=== PATIENT | female | born 1970 | race Caucasian/White ===

== ENCOUNTER 2020-03-24 08:13 | Outpatient (REF) | payer OTHER, SELFPAY | END 2020-03-24 08:14 | disposition home or self-care (01) | LOC: HO.LAB 08:13 | PROVIDERS: Visit Provider Internal Medicine | DX: Z20.828 Contact with and (suspected) exposure to other viral communicable diseases (principal) | CPT/HCPCS: C9803; U0003 ==

== ENCOUNTER 2020-05-26 07:27 | Outpatient (REF) | payer OTHER, SELFPAY ==
--- NOTE | ~2020-05-26 | MM_ITS ---
EXAMINATION: MM SCREENING DIGITAL BREAST TOMOSYNTHESIS, BILATERAL CLINICAL INFORMATION: Screening. Asymptomatic. Family history breast cancer, mother. The lifetime risk of breast cancer based on the Tyrer-Cuzick Model is 21%. COMPARISON: Mammography: 02/07/2019, 11/24/2017, 07/09/2016 TECHNIQUE: Digital mammography is performed in craniocaudal and mediolateral oblique views along with computer-aided detection (CAD). Digital breast tomosynthesis is performed in implant-displaced craniocaudal and implant-displaced mediolateral oblique views along with computer-aided detection (CAD). Synthesized 2D images are generated from the tomosynthesis. Additional right CC view is provided. FINDINGS: There are scattered areas of fibroglandular density (ACR BI-RADS breast composition Category b). There are no significant masses, abnormal calcifications, or other abnormalities. Implant contours are smooth and similar to prior studies. Parenchymal pattern is similar to prior exams. No significant changes. MM/MM tomosynthesis screen imp BI IMPRESSION: No mammographic evidence of malignancy. ASSESSMENT: BI-RADS 1: Negative RECOMMENDATION: Routine annual mammography screening. This patient's information was entered into a reminder system with a target due date for their next mammogram.
[2020-05-26 09:42] LABS: MANUAL DIFF FLAG NO
[2020-05-26 09:49] LABS: Basophils Percent Auto 0.5 % (0-2); Eosinophils Absolute Auto 0.1 X10*3/uL (0.0-0.4); Eosinophils Percent Auto 2.8 % (0-4); Hematocrit 38.4 % (37-47); Hemoglobin 12.8 g/dl (12.0-16.0); Imm Gran Abs Auto 0.01 X10*3/uL (0.00-0.03); Imm Gran Pct Auto 0.2 % (0.0-0.4); Lymphocytes Absolute Auto 1.4 X10*3/uL (1.2-4.9); Lymphocytes Percent Auto 31.4 % (20-40); Mean Corpuscular HGB Conc 33.3 g/dl (31.0-35.0); Mean Corpuscular Hemoglobin 31.1 pg (27.0-33.0); Mean Corpuscular Volume 93.4 fL (80-98); Mean Platelet Volume 10.1 fL (9.4-12.3); Monocytes Absolute Auto 0.7 X10*3/uL (0.1-1.2); Monocytes Percent Auto 16.2 % (2-11); Neutrophils Absolute Auto 2.1 X10*3/uL (2.0-8.3); Neutrophils Percent Auto 48.9 % (45-73); Platelet Count 276 X10*3/uL (160-400); Red Blood Count 4.11 X10*6/uL (4.20-5.50); Red Cell Distribution Width 12.3 % (11.0-16.0); White Blood Count 4.3 X10*3/uL (4.8-10.8)
[2020-05-26 09:58] LABS: Glucose Urine UA NEG (NEG); Leukocyte Esterase Urine NEG (NEG); Nitrite Urine NEG (NEG); Specific Gravity - Urine >= 1.030 (1.005-1.025); Urine Blood NEG (NEG); Urine Ketones NEG (NEG); Urine Protein TRACE MG/DL (NEG-TRACE)
[2020-05-26 10:00] LABS: Appearance Urine CLOUDY; Color Urine YELLOW
[2020-05-26 10:18] LABS: Alanine Aminotransferase 12 U/L (0-31); Albumin Level 4.3 g/dL (3.5-5.0); Alkaline Phosphatase 57 U/L (39-117); Anion Gap 13 (12-20); Aspartate Amino Transferase 12 U/L (5-31); Bilirubin Total 0.6 mg/dL (0.0-1.0); Blood Urea Nitrogen 15 mg/dL (9-16); Calcium 9.2 mg/dL (8.4-10.2); Carbon Dioxide 26 mmol/L (22-29); Chloride 106 mmol/L (96-108); Cholesterol 177 mg/dL; Estimated Glomerular Filt Rate > 60; Glucose Random 83 mg/dL (60-115); HDL Cholesterol 49 mg/dL; LDL Cholesterol Calculated 116 mg/dl; Potassium 4.6 mmol/L (3.3-5.1); Sodium 140 mmol/L (135-145); Total Protein 7.1 g/dL (6.5-8.0); Triglycerides 62 mg/dL
[2020-05-26 10:41] LABS: Free T4 (Free Thyroxine) 0.97 ng/dL (0.71-1.85); Thyroid Stimulating Hormone 1.51 uIU/mL (0.32-4.0); Vitamin D 25-OH Total 33.8 ng/mL (>30)
[2020-05-26 10:51] LABS: Bacteria Urine 1+ /LPF; Mucus Urine TRACE /LPF; Squamous Epithelial Cell Urine 3+ /LPF; WBC Urine 0 /HPF (0-4)
[2020-06-01 05:08] LABS: Folate 18.6 ng/mL (> or = 4.0); Vitamin B12 1596 pg/mL (200-900)
== END 2020-05-26 07:28 | disposition home or self-care (01) ==
LOC: HO.MAMMO 07:27
PROVIDERS: PCP Internal Medicine; Visit Provider Internal Medicine
DX: G40.909 Epilepsy, unspecified, not intractable, without status epilepticus (principal); E78.00 Pure hypercholesterolemia, unspecified; Z12.31 Encounter for screening mammogram for malignant neoplasm of breast
CPT/HCPCS: 36415; 77063; 77067; 80053; 80061; 81001; 82306; 82607; 82746; 84439; 84443; 85025

== ENCOUNTER 2020-05-28 08:45 | Outpatient (REF) | payer OTHER, SELFPAY ==
--- NOTE | ~2020-05-28 | XR_ITS ---
EXAMINATION: XR LUMBOSACRAL SPINE CLINICAL INFORMATION: Low back pain COMPARISON: None TECHNIQUE: AP and lateral views of the lumbar spine with an additional coned down lateral spot view of the lumbosacral junction. FINDINGS: 5 non-rib bearing lumbar type vertebral bodies are seen. There is subtle mild convex right thoracolumbar scoliosis with apex at L1 which could be positional. Normal sagittal alignment. Vertebral body and disc heights are maintained. There may be lower lumbar facet arthropathy. There is minimal spurring adjacent the L1-L2 disc space there is posterior disc calcification at T11-12. XR/XR lumbar spine 2-3V IMPRESSION: No acute osseous abnormality. Degenerative changes as described above.
== END 2020-05-28 08:46 | disposition home or self-care (01) ==
LOC: HO.XRAY 08:45
PROVIDERS: PCP Internal Medicine; Visit Provider Nurse Practitioner Family
DX: M54.5 Low back pain (principal)
CPT/HCPCS: 72100

== ENCOUNTER 2020-12-17 15:10 | Outpatient (REF) | payer OTHER, SELFPAY ==
[2020-12-17 15:29] LABS: MANUAL DIFF FLAG NO
[2020-12-17 15:37] LABS: Basophils Percent Auto 0.1 % (0-2); Eosinophils Absolute Auto 0.1 X10*3/uL (0.0-0.4); Eosinophils Percent Auto 0.9 % (0-4); Hematocrit 36.5 % (37-47); Hemoglobin 12.3 g/dl (12.0-16.0); Imm Gran Abs Auto 0.03 X10*3/uL (0.00-0.03); Imm Gran Pct Auto 0.3 % (0.0-0.4); Lymphocytes Absolute Auto 2.5 X10*3/uL (1.2-4.9); Lymphocytes Percent Auto 27.3 % (20-40); Mean Corpuscular HGB Conc 33.7 g/dl (31.0-35.0); Mean Corpuscular Hemoglobin 31.2 pg (27.0-33.0); Mean Corpuscular Volume 92.6 fL (80-98); Mean Platelet Volume 9.4 fL (9.4-12.3); Monocytes Absolute Auto 0.5 X10*3/uL (0.1-1.2); Monocytes Percent Auto 5.3 % (2-11); Neutrophils Absolute Auto 6.1 X10*3/uL (2.0-8.3); Neutrophils Percent Auto 66.1 % (45-73); Platelet Count 330 X10*3/uL (160-400); Red Blood Count 3.94 X10*6/uL (4.20-5.50); Red Cell Distribution Width 12.3 % (11.0-16.0); White Blood Count 9.2 X10*3/uL (4.8-10.8)
== END 2020-12-17 15:11 | disposition home or self-care (01) ==
LOC: HO.LAB 15:10
PROVIDERS: PCP Internal Medicine; Visit Provider Internal Medicine
DX: D72.819 Decreased white blood cell count, unspecified (principal)
CPT/HCPCS: 36415; 85025

== ENCOUNTER → 2021-01-16 07:39 | Outpatient (BNVA) | payer OTHER, SELFPAY | PROVIDERS: PCP Internal Medicine; Visit Provider Physician Assistant ==

== ENCOUNTER 2021-01-24 13:42 | Outpatient (REF) | payer OTHER, SELFPAY ==
--- NOTE | ~2021-01-24 | MM_ITS ---
EXAMINATION: MM DIAGNOSTIC DIGITAL BREAST TOMOSYNTHESIS, RIGHT US DIAGNOSTIC ULTRASOUND BREAST, RIGHT CLINICAL INFORMATION: Small palpable fullness noted by patient 5:00 to 6:00 right breast noted approximately 3 weeks ago, recently decreased in size. No discharge. Age 50. TC score 9%. COMPARISON: Mammography: 01/23/2021, 02/07/2019, 11/24/2017 TECHNIQUE: Digital mammography is performed in craniocaudal and mediolateral oblique views. Digital breast tomosynthesis is performed in implant-displaced craniocaudal and implant-displaced mediolateral oblique views. Synthesized 2D images are generated from the tomosynthesis. Computer-aided detection (CAD) is performed for this exam. Ultrasound right breast is targeted to the area of clinical concern. Patient is able to directly point to the area of concern at time of imaging. Grayscale imaging and color Doppler are performed without and with harmonics. FINDINGS: There are scattered areas of fibroglandular density (ACR BI-RADS breast composition Category b). The implant contours are unremarkable. Parenchymal pattern is similar to prior studies. There is no developing density or interval mass or architectural abnormality. No focal duct ectasia or skin thickening or retraction. No abnormal calcifications. Ultrasound right breast targeted to the area of clinical concern demonstrates no cystic or solid mass or architectural abnormality or focal duct ectasia. No skin thickening or edema tracking in soft tissue planes. Results are discussed with the patient at time of visit. Patient should be managed based on the clinical impression. If clinically indicated, further evaluation may be considered with surgical consult. Decision to proceed with biopsy should be based on clinical grounds and degree of clinical concern. MM/MM tomosynthesis diag imp RT IMPRESSION: No mammographic evidence of malignancy. Unremarkable targeted right breast ultrasound. ASSESSMENT: BI-RADS 1: Negative RECOMMENDATION: 1. Patient should be managed based on the clinical impression. If clinically indicated, further evaluation may be considered with surgical consult. Decision to proceed with biopsy should be based on clinical grounds and degree of clinical concern. 2. Otherwise, routine annual screening mammography. This patient's information was entered into a reminder system with a target due date for their next mammogram.
== END 2021-01-24 13:43 | disposition home or self-care (01) ==
LOC: HO.MAMMO 13:42
PROVIDERS: PCP Internal Medicine; Visit Provider Internal Medicine
DX: N60.01 Solitary cyst of right breast (principal)
CPT/HCPCS: 76642; 77061; 77065

== ENCOUNTER 2022-08-05 08:45 | Outpatient (REF) | payer OTHER, SELFPAY ==
--- NOTE | ~2022-08-05 | MM_ITS ---
EXAMINATION: MM SCREENING DIGITAL BREAST TOMOSYNTHESIS, BILATERAL CLINICAL INFORMATION: Screening. Asymptomatic. The lifetime risk of breast cancer based on the Tyrer-Cuzick Model is 10%. COMPARISON: Mammography: 01/24/2021, 05/26/2020, 02/07/2019, 11/24/2017; right breast ultrasound 01/24/2021. TECHNIQUE: Digital mammography is performed in craniocaudal and mediolateral oblique views along with computer-aided detection (CAD). Digital breast tomosynthesis is performed in implant-displaced craniocaudal and implant-displaced mediolateral oblique views along with computer-aided detection (CAD). Synthesized 2D images are generated from the tomosynthesis. Additional left MLO view is provided. FINDINGS: There are scattered areas of fibroglandular density (ACR BI-RADS breast composition Category b). There are no significant masses, abnormal calcifications, or other abnormalities. Parenchymal pattern is similar to prior studies. There is no developing density or architectural abnormality. The implant contours are smooth. The axilla and skin contours are unremarkable. No significant changes. MM/MM tomosynthesis screen imp BI IMPRESSION: No mammographic evidence of malignancy. ASSESSMENT: BI-RADS 1: Negative RECOMMENDATION: Routine annual mammography screening. This patient's information was entered into a reminder system with a target due date for their next mammogram.
== END 2022-08-05 08:46 | disposition home or self-care (01) ==
LOC: HO.MAMMO 08:45
PROVIDERS: Visit Provider Internal Medicine
DX: Z12.31 Encounter for screening mammogram for malignant neoplasm of breast (principal)
CPT/HCPCS: 77063; 77067

== ENCOUNTER 2022-10-15 06:08 | Outpatient (REF) | payer OTHER, SELFPAY ==
[2022-10-15 06:17] LABS: MANUAL DIFF FLAG NO
[2022-10-15 08:52] LABS: Basophils Percent Auto 0.6 % (0-2); Eosinophils Absolute Auto 0.4 X10*3/uL (0.0-0.4); Eosinophils Percent Auto 5.3 % (0-4); Hematocrit 38.5 % (37.0-47.0); Hemoglobin 12.8 g/dl (12.0-16.0); Imm Gran Abs Auto 0.01 X10*3/uL (0.00-0.03); Imm Gran Pct Auto 0.1 % (0.0-0.4); Lymphocytes Absolute Auto 2.6 X10*3/uL (1.2-4.9); Lymphocytes Percent Auto 38.7 % (20-40); Mean Corpuscular HGB Conc 33.2 g/dl (31.0-35.0); Mean Corpuscular Hemoglobin 30.5 pg (27.0-33.0); Mean Corpuscular Volume 91.9 fL (80.0-98.0); Mean Platelet Volume 10.1 fL (9.4-12.3); Monocytes Absolute Auto 0.6 X10*3/uL (0.1-1.2); Monocytes Percent Auto 8.1 % (2-11); Neutrophils Absolute Auto 3.2 x10*3/uL (2.0-8.3); Neutrophils Percent Auto 47.2 % (45-73); Platelet Count 308 X10*3/uL (160-400); Red Blood Count 4.19 X10*6/uL (4.20-5.50); Red Cell Distribution Width 13.1 % (11.0-16.0); White Blood Count 6.8 X10*3/uL (4.8-10.8)
[2022-10-15 09:40] LABS: Alanine Aminotransferase 18 U/L (0-31); Albumin Level 4.2 g/dL (3.5-5.0); Alkaline Phosphatase 66 U/L (39-117); Anion Gap 15 (12-20); Aspartate Amino Transferase 20 U/L (5-31); Bilirubin Total 0.5 mg/dL (0.0-1.0); Blood Urea Nitrogen 19 mg/dL (9-16); Calcium 10.1 mg/dL (8.4-10.2); Carbon Dioxide 24 mmol/L (22-29); Chloride 106 mmol/L (96-108); Cholesterol 219 mg/dL; Estimated Glomerular Filt Rate > 60; Glucose Fasting 75 mg/dL (60-99); HDL Cholesterol 61 mg/dL; LDL Cholesterol Calculated 142 mg/dl; Potassium 4.8 mmol/L (3.3-5.1); Sodium 140 mmol/L (135-145); Total Protein 7.6 g/dL (6.5-8.0); Triglycerides 81 mg/dL
[2022-10-15 09:48] LABS: TSH reflex Free T4 2.56 uIU/mL (0.32-4.0); Vitamin D 25-OH Total 51.7 ng/mL (>30)
== END 2022-10-15 06:09 | disposition home or self-care (01) ==
LOC: HO.LAB 06:08
PROVIDERS: PCP Internal Medicine; Visit Provider Nurse Practitioner Family
DX: Z00.00 Encounter for general adult medical examination without abnormal findings (principal); K21.9 Gastro-esophageal reflux disease without esophagitis; M54.50 Low back pain, unspecified; F41.9 Anxiety disorder, unspecified; J45.909 Unspecified asthma, uncomplicated; G40.909 Epilepsy, unspecified, not intractable, without status epilepticus; G43.909 Migraine, unspecified, not intractable, without status migrainosus
CPT/HCPCS: 36415; 80053; 80061; 82306; 84443; 85025

== ENCOUNTER 2022-10-15 07:16 | Outpatient (AMB) | payer OTHER, SELFPAY ==
--- NOTE | 2022-10-15 07:50 | MHC.OFFVIS ---
Intake Vital Signs 10/15/22 07:52 Height 5 ft 5 in Weight 156 lb BMI 26.0 BP 98/57 L Blood Pressure Location Lt brachial Position Sitting Pulse 66 Intake Visit Reasons: Colonoscopy Screening Intake Note: Patient follow up for 1st pre colonoscopy consult. Patient cc: abdominal bloating, acid reflex on and off and some constipation. 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 Accompanied by: Self / Same As Patient Allergies paroxetine Adverse Reaction (Unknown, Verified 10/15/22 07:49) Unknown sertraline [Zoloft] Adverse Reaction (Unknown, Verified 10/15/22 07:49) Unknown Medication List - Last Reconciled 10/15/22 by Danya Kwon PA-C albuterol sulfate 90 mcg/actuation 2 puffs PO QID bisacodyl (Dulcolax (bisacodyl)) 10 mg (2 x 5 mg) PO ONCE 1 day bupropion HCl 300 mg PO QAM hydroxyzine HCl 25 mg PO BID PRN ibuprofen 800 mg PO Q8H PRN 10 days melatonin 3 mg PO BEDTIME PRN polyethylene glycol 3350 (Miralax) 238 grams PO ONCE 1 day tizanidine 4 mg PO Q8H PRN zolpidem (Ambien) 5 mg PO BEDTIME PRN HPI HPI Comments History of Present Illness Details A 52 y/o female referred for index screening -his family history paternal grandfather colon cancer her parents have had no GI issues. His abdominal bloating otherwise no GI complaints. Appetite is good No cardiac or respiratory No nausea, vomiting, diarrhea, hematemesis, hematochezia fever chills PFSH Medical History Anxiety and depression Asthma GERD (gastroesophageal reflux disease) Insomnia Leukopenia Lower back pain Migraine Seizure disorder Tobacco abuse Surgical History History of abdominoplasty Family History Father Mouth cancer Mother No problems noted. Sister Seizure Bipolar disorder Maternal Grandmother Leukemia Breast cancer Paternal Grandmother Leukemia Cancer Maternal Uncle Liver cancer Heart attack Other Mental health problem Social History Household Members Other:: - 2 children Housing: House Alcohol intake: current Alcohol intake frequency: holidays/special occasions only Patient Tobacco Use Status: Former Tobacco user Tobacco use type: Cigarette Years Smoked: quit 2020 e-Cigarette/Vaping Use: Never Used Second Hand Smoke Exposure: No service: No Current occupational status: employed Cognitive needs: No Hearing needs: No Vision needs: No Review of Systems Const All systems reviewed & are unremarkable except as noted in HPI and below Card Denies chest pain and Denies dyspnea Resp Denies dyspnea GI Denies abdominal pain and Reports bloating Physical Exam Vital Signs: Last Vital Signs Pulse 66 10/15/22 07:52 BP 98/57 L 10/15/22 07:52 BMI result Body Mass Index 26.0 Const General: cooperative, healthy appearing and comfortable Resp Effort & Inspection: normal respiratory effort and able to speak in complete sentences Auscultation: clear to auscultation bilaterally Cardio Rate: regular rate Rhythm: regular rhythm Heart sounds: S1 normal heart sound present and S2 normal heart sound present Skin General skin exam: no rashes or lesions noted Extrem General: Yes full ROM Psych Appearance: grossly normal and well kempt Mental Status: mental status grossly normal Speech and movement: Normal speech and movement present Affect: normal affect Attitude: cooperative Thought process: Normal thought process present Thought content: Normal thought content present Assessment & Plan Assessment & Plan (1) Colon cancer screening: Comment: Index screening colonoscopy Code(s): Z12.11 - Encounter for screening for malignant neoplasm of colon (2) GERD (gastroesophageal reflux disease): Comment: She denies acid reflux taking any PPIs or H2 deven Appetite is good Code(s): K21.9 - Gastro-esophageal reflux disease without esophagitis Qualifiers: Esophagitis presence: without esophagitis Qualified Code(s): K21.9 - Gastro-esophageal reflux disease without esophagitis Plan Index screening colonoscopy, MiraLax Gatorade split prep Orders: Orders Colonoscopy - GI Use Only Today Z12.11 - Encounter for screening for malignant neoplasm of colon Medications: Refilled bisacodyl (Dulcolax (bisacodyl)) Take 2 tablets by mouth at 12:00pm the day before your procedure. 10 mg (2 x 5 mg) PO ONCE 2 tabs 0RF colonoscopy prep 1 day Z12.11 - Encounter for screening for malignant neoplasm of colon polyethylene glycol 3350 (Miralax) Take as directed by mouth the day before your procedure. 238 grams PO ONCE 238 grams 0RF 1 day Patient Instructions: Very pleasant 52-year-old female referred for index screening colonoscopy. Discussed procedure, rare risks need for escorted due to anesthesia as well as MiraLax Gatorade split prep. Literature given Encouraged to call questions or concerns Appreciate the opportunity assist in the care the patient Coding Level of Care Code New Pt Level 3 (72036) Diagnoses Colon cancer screening Z12.11 GERD (gastroesophageal reflux disease) K21.9 Esophagitis presence: without esophagitis Time Spent (min) 25
[2022-10-15 07:52] VITALS: BP 98/57; PULSE 66; BMI 26.0
== END 2022-10-15 08:09 | disposition home or self-care (01) ==
PROVIDERS: PCP Internal Medicine; Visit Provider Physician Assistant
DX: Z12.11 Encounter for screening for malignant neoplasm of colon (principal); K21.9 Gastro-esophageal reflux disease without esophagitis
CPT/HCPCS: 99213

== ENCOUNTER 2023-01-01 08:40 | Outpatient (AMB) | payer OTHER, SELFPAY ==
[2023-01-01 08:49] VITALS: BP 114/72; PULSE 62; O2SAT 98; BMI 26.3
--- NOTE | 2023-01-01 08:49 | A.OFFPC_ITS ---
Vital Signs 01/01/23 08:49 Height 5 ft 5 in Weight 158 lb BMI 26.3 BP 114/72 Blood Pressure Location Lt brachial Position Sitting Pulse 62 Pulse Source Pulse Oximeter Pulse Oximetry (%) 98 Oxygen Delivery Method Room Air Intake Visit Reasons: seizure a few weeks ago Allergies paroxetine Adverse Reaction (Unknown, Verified 01/01/23 08:49) Unknown sertraline [Zoloft] Adverse Reaction (Unknown, Verified 01/01/23 08:49) Unknown Medication List - Last Reconciled 01/01/23 by Suzanne Weiss MD albuterol sulfate 90 mcg/actuation 2 puffs PO QID bisacodyl (Dulcolax (bisacodyl)) 10 mg (2 x 5 mg) PO ONCE 1 day buspirone 5 mg PO BID hydroxyzine HCl 25 mg PO BID PRN ibuprofen 800 mg PO Q8H PRN 10 days melatonin 3 mg PO BEDTIME PRN polyethylene glycol 3350 (Miralax) 238 grams PO ONCE 1 day tizanidine 4 mg PO Q8H PRN zolpidem (Ambien) 5 mg PO BEDTIME PRN Tobacco use date assessed: 04/16/22 Dental Screening Dental Screen Date: 01/01/23 Did you have a dental visit in the last 12 months?: Yes Did you have a dental problem in the last 6 months where you did not have access to dental care?: No Was dental information given to patient?: Patient has dentist HPI seizure a few weeks ago HPI Details 52-year-old female with asthma insomnia GERD generalized anxiety disorder last seen in August 2022. Patient was advised colonoscopy. Mammograms up-to-date. Blood work last done in October. 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 woke up on the floor. was told 5 min tense ? foaming - ER - test done. Seizure disorder last seen [facility] Dr. Douglas 2017 was rx lamotrigine but was discontinue. review notes generalized tonic cloni- ? syncopal episode [facility] Medical History (Updated 01/01/23 @ 09:21 by Suzanne Weiss MD) GERD (gastroesophageal reflux disease) Leukopenia Lower back pain Tobacco abuse Seizure disorder Migraine Anxiety and depression Asthma Insomnia Surgical History History of abdominoplasty Family History Father Mouth cancer Mother No problems noted. Sister Seizure Bipolar disorder Maternal Grandmother Leukemia Breast cancer Paternal Grandmother Leukemia Cancer Maternal Uncle Liver cancer Heart attack Other Mental health problem Social History Household Members Other:: - 2 children Housing: House Alcohol intake: current Alcohol intake frequency: holidays/special occasions only Patient Tobacco Use Status: Former Tobacco user Tobacco use type: Cigarette Years Smoked: quit 2020 e-Cigarette/Vaping Use: Never Used Second Hand Smoke Exposure: No service: No Current occupational status: employed Cognitive needs: No Hearing needs: No Vision needs: No Questionnaire PHQ-9 Over the last 2 weeks, how often have you been bothered by any of the following problems? 1. Little interest or pleasure in doing things: not at all 2. Feeling down, depressed, or hopeless: not at all 3. Trouble falling or staying asleep, or sleeping too much: not at all 4. Feeling tired or having little energy: not at all 5. Poor appetite or overeating: not at all 6. Feeling bad about yourself - or that you are a failure or have let yourself or your family down: not at all 7. Trouble concentrating on things, such as reading the newspaper or watching television: not at all 8. Moving or speaking so slowly that other people could have noticed. Or the opposite - being so fidgety or restless that you have been moving around a lot more than usual: not at all 9. Thoughts that you would be better off or of hurting yourself in some way: not at all Total score: 0 Depression Screening Interpretation: Negative 83344 - PHQ-9 Billing: Yes Source: Developed by Drs. Moisés Pratt, Amanda Peoples, Alirio Molina and colleagues, with an educational presley from [employer]. Thrive Questionnaire Date Thrive assessed: 04/16/22 AUDIT C Alcohol Use Questionnaire (AUDIT-C) 1. How often do you have a drink containing alcohol?: Monthly or less (social ) 2. How many drinks containing alcohol do you have on a typical day when you are drinking?: 1 or 2 3. How often do you have six or more drinks on one occasion?: Never Total Score: 1 Score Reviewed/Action Taken: No NICOLASA-7 AMB Questionnaire NICOLASA-7 Date NICOLASA - 7 assessed: 04/16/22 Source: Developed by Drs. Moisés Pratt, Amanda Peoples, Alirio reese, with an educational presley from [employer]. Physical exam (Primary Care) Vital Signs: Last Vital Signs Pulse 62 01/01/23 08:49 BP 114/72 01/01/23 08:49 Pulse Ox 98 01/01/23 08:49 Oxygen Delivery Method Room Air 01/01/23 08:49 BMI result Body Mass Index 26.3 Tobacco/Smoking Status: Tobacco use Status Tobacco use date assessed 04/16/22 01/01/23 08:54 Patient Tobacco Use Status Former Tobacco user 01/01/23 08:54 Tobacco use type Cigarette 01/01/23 08:54 e-Cigarette/Vaping Use Never Used 01/01/23 08:54 PHQ-9: PHQ-9 Score PHQ-9: Total score 0 01/01/23 08:54 Depression Screening Interpretation: Negative Thrive Assessment: Date of Thrive Assessment Date Thrive assessed 04/16/22 01/01/23 08:54 Const General: alert; No acute distress Eyes Conjunctivae: conjunctivae normal Resp Auscultation: clear to auscultation bilaterally Cardio Rate: regular rate Rhythm: regular rhythm GI Inspection: Yes normal to inspection Extrem General: Yes normal to inspection and No edema Assessment and Plan Assessment & Plan (1) Hypercholesterolemia: Code(s): E78.00 - Pure hypercholesterolemia, unspecified Plan: Avoid fried foods, chicken skin, eggs, butter margarine, pastries and meat. Be it pork or beef they have a lot of cholesterol (2) Asthma: Code(s): J45.909 - Unspecified asthma, uncomplicated Qualifiers: Asthma severity: mild Asthma persistence: intermittent Asthma complication type: uncomplicated Qualified Code(s): J45.20 - Mild intermittent asthma, uncomplicated Plan: Continue with the inhaler (3) Generalized anxiety disorder: Comment: Declined any referral for counseling Code(s): F41.1 - Generalized anxiety disorder Plan: Continue present medication (4) Seizure disorder: Code(s): G40.909 - Epilepsy, unspecified, not intractable, without status epilepticus (5) TSH elevation: Code(s): R79.89 - Other specified abnormal findings of blood chemistry Orders: Orders Free T4 (Free Thyroxine) 3 Months R7.89 - Other specified abnormal findings of blood chemistry Thyroid Stimulating Hormone 3 Months R7.89 - Other specified abnormal findings of blood chemistry Lipid Panel 3 Months E78.00 - Pure hypercholesterolemia, unspecified Comprehensive Met. Panel 3 Months E78.00 - Pure hypercholesterolemia, unspecified Referrals Neurology Referral G40.909 - Epilepsy, unspecified, not intractable, without status epilepticus Medications: New buspirone 5 mg PO BID 60 tabs 2RF F41.1 - Generalized anxiety disorder Refilled albuterol sulfate 90 mcg/actuation 2 puffs PO QID 8.5 grams 0RF J45.20 - Mild intermittent asthma, uncomplicated Discontinued bupropion HCl Discontinued Reason: Doctor's Order 300 mg PO QAM 90 tabs 0RF F32.9 - Major depressive disorder, single episode, unspecified, F41.9 - Anxiety disorder, unspecified Coding Level of Care Code Est Pt Level 4 (98549) Diagnoses Hypercholesterolemia E78.00 Mild intermittent asthma without complication J45.20 Asthma severity: mild Asthma persistence: intermittent Asthma complication type: uncomplicated Generalized anxiety disorder F41.1 Seizure disorder G40.909 TSH elevation R79.89
== END 2023-01-01 09:30 | disposition home or self-care (01) ==
PROVIDERS: PCP Internal Medicine; Visit Provider Internal Medicine
DX: E78.00 Pure hypercholesterolemia, unspecified (principal); J45.20 Mild intermittent asthma, uncomplicated; F41.1 Generalized anxiety disorder; G40.909 Epilepsy, unspecified, not intractable, without status epilepticus; R79.89 Other specified abnormal findings of blood chemistry
CPT/HCPCS: 99214

== ENCOUNTER 2023-01-22 08:40 | Outpatient (AMB) | payer OTHER, SELFPAY ==
[2023-01-22 08:40] VITALS: BP 102/68; PULSE 69; O2SAT 97; BMI 26.3
--- NOTE | 2023-01-22 08:40 | MHC.PC.OV ---
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: No Allergies paroxetine Adverse Reaction (Unknown, Verified 01/22/23 08:54) Unknown sertraline [Zoloft] Adverse Reaction (Unknown, Verified 01/22/23 08:54) Unknown Medication List - Last Reconciled 01/22/23 by ROBERT Renae albuterol sulfate 90 mcg/actuation 2 puffs PO QID benzonatate 200 mg PO BID-TID PRN bisacodyl (Dulcolax (bisacodyl)) 10 mg (2 x 5 mg) PO ONCE 1 day buspirone 5 mg PO BID hydroxyzine HCl 25 mg PO BID PRN ibuprofen 800 mg PO Q8H PRN 10 days melatonin 3 mg PO BEDTIME PRN polyethylene glycol 3350 (Miralax) 238 grams PO ONCE 1 day tizanidine 4 mg PO Q8H PRN zolpidem (Ambien) 5 mg PO BEDTIME PRN Tobacco use date assessed: 01/22/23 Dental Screening Dental Screen Date: 01/22/23 Did you have a dental visit in the last 12 months?: Yes Did you have a dental problem in the last 6 months where you did not have access to dental care?: No Was dental information given to patient?: Patient has dentist HPI Left foot swollen HPI Details Patient is a 52-year-old female who presents today with left 5th toe redness and swelling after removing splinter [address] of [address] Weiss. Patient reports that she did have more swelling on her left foot and this is improving now, although her toe still red swollen and painful. No fever or chills. She also reports intermittent dry cough for the past 1 week and she has been taking benzonatate with no much improvement. [facility] Medical History GERD (gastroesophageal reflux disease) Leukopenia Lower back pain Tobacco abuse Seizure disorder Migraine Anxiety and depression Asthma Insomnia Surgical History History of abdominoplasty Family History Father Mouth cancer Mother No problems noted. Sister Seizure Bipolar disorder Maternal Grandmother Leukemia Breast cancer Paternal Grandmother Leukemia Cancer Maternal Uncle Liver cancer Heart attack Other Mental health problem Social History Household Members Other:: - 2 children Housing: House Alcohol intake: current Alcohol intake frequency: holidays/special occasions only Patient Tobacco Use Status: Former Tobacco user Tobacco use type: Cigarette Years Smoked: quit 2020 e-Cigarette/Vaping Use: Never Used Second Hand Smoke Exposure: No service: No Current occupational status: employed Cognitive needs: No Hearing needs: No Vision needs: No Questionnaire Thrive Questionnaire Date Thrive assessed: 04/16/22 AUDIT C Alcohol Use Questionnaire (AUDIT-C) 1. How often do you have a drink containing alcohol?: Monthly or less (social ) 2. How many drinks containing alcohol do you have on a typical day when you are drinking?: 1 or 2 3. How often do you have six or more drinks on one occasion?: Never Total Score: 1 Score Reviewed/Action Taken: No NICOLASA-7 AMB Questionnaire NICOLASA-7 Date NICOLASA - 7 assessed: 04/16/22 Source: Developed by Drs. Moisés Pratt, Amanda Peoples, Alirio Molina and colleagues, with an educational presley from [employer]. Review of Systems Const Denies body aches, Denies chills, Denies fever(s) and Denies headache(s) ENT Denies dizziness, Denies otalgia, Denies headache(s), Denies nasal discharge, Denies sinus pain and Denies sore throat Card Denies chest pain, Denies edema, Denies lightheadedness and Denies dyspnea Resp Reports cough, Denies dyspnea and Denies wheezing GI Denies abdominal pain Denies dysuria Musc Denies myalgias Skin/Breast Reports as per HPI and Denies rash Neuro Denies dizziness and Denies headache(s) Aller/Immun Denies wheezing Physical exam (Primary Care) Vital Signs: Last Vital Signs Pulse 69 01/22/23 08:40 BP 102/68 10/19/23 08:40 Pulse Ox 97 01/22/23 08:40 Oxygen Delivery Method Room Air 01/22/23 08:40 BMI result Body Mass Index 26.3 Tobacco/Smoking Status: Tobacco use Status Tobacco use date assessed 01/22/23 01/22/23 08:47 Patient Tobacco Use Status Former Tobacco user 01/22/23 08:47 Tobacco use type Cigarette 01/22/23 08:47 e-Cigarette/Vaping Use Never Used 01/22/23 08:47 Thrive Assessment: Date of Thrive Assessment Date Thrive assessed 04/16/22 01/22/23 08:47 Const General: cooperative and no acute distress Orientation/consciousness: patient oriented x3 HENMT Head: Yes normocephalic and Yes atraumatic Eyes General: appearance normal, both eyes and all related structures Neck Neck: Yes normal visual inspection and Yes full ROM Resp Effort & Inspection: normal respiratory effort and able to speak in complete sentences Auscultation: clear to auscultation bilaterally, no crackles, no rales, no rhonchi and no wheezes Cardio Rate: regular rate Rhythm: regular rhythm Heart sounds: S1 normal heart sound present, S2 normal heart sound present and no murmurs GI Auscultation: normal bowel sounds Skin Other: Left 5th toe dorsal aspect yellow flat area noted about 2 mm no discharge, dorsal aspect toe red, swollen, tender Neuro General: patient oriented x3 Gait exam (Neuro): Normal gait present Extrem General: Yes full ROM and No edema Assessment and Plan Assessment & Plan (1) Toe swelling: Code(s): M79.89 - Other specified soft tissue disorders Plan: Left 5th toe dorsal aspect yellow flat area noted about 2 mm no discharge, dorsal aspect toe red, swollen, tender Start doxycycline b.i.d. for 10 days Signs and symptoms reviewed when to notify provider (2) Asthma: Code(s): J45.909 - Unspecified asthma, uncomplicated Qualifiers: Asthma severity: mild Asthma persistence: intermittent Asthma complication type: uncomplicated Qualified Code(s): J45.20 - Mild intermittent asthma, uncomplicated Plan: Lungs are clear to auscultation. Patient is to continue albuterol inhaler p.r.n.. Also doxycycline will cover respiratory system. Continue benzonatate p.r.n.. Notify provider if no improvement after finishing treatment Medications: New doxycycline hyclate 100 mg PO BID 20 tabs 0RF 10 days M79.89 - Other specified soft tissue disorders Refilled albuterol sulfate 90 mcg/actuation 2 puffs PO QID 8.5 grams 0RF J45.20 - Mild intermittent asthma, uncomplicated Coding Level of Care Code Est Pt Level 4 (98512) Diagnoses Toe swelling M79.89 Mild intermittent asthma without complication J45.20 Asthma severity: mild Asthma persistence: intermittent Asthma complication type: uncomplicated
== END 2023-01-22 10:29 | disposition home or self-care (01) ==
PROVIDERS: PCP Internal Medicine; Visit Provider Nurse Practitioner Family
DX: M79.89 Other specified soft tissue disorders (principal); J45.20 Mild intermittent asthma, uncomplicated
CPT/HCPCS: 99214

== ENCOUNTER 2023-04-16 06:38 | Day surgery (SDC) | payer OTHER, SELFPAY ==
[2023-04-13 14:21] VITALS: BMI 26.3
--- NOTE | 2023-04-15 08:59 | HO.ANESPROP2 ---
Documented by User: Vivian Hernandez NP 04/15/23 09:00 HPI - Anesthesia Eval Consult details Narrative: 52yo F for Colonoscopy PMFSH Active Problems Active Problems: All Active Problems (Updated 01/22/23 @ 09:02 by ROBERT Renae) Toe swelling (Acute) TSH elevation (Acute) Hypercholesterolemia (Acute) Lower back pain (Acute) Generalized anxiety disorder (Acute) Breast cyst (Acute) Impacted cerumen of right ear (Acute) Colon cancer screening (Acute) Annual physical exam (Acute) Seizure disorder (Acute) Migraine (Acute) Asthma (Acute) Insomnia (Acute) Past Medical History Medical History Leukopenia Lower back pain Tobacco abuse Seizure disorder Migraine Anxiety and depression GERD (gastroesophageal reflux disease) Asthma Insomnia Family History Family History Father Mouth cancer Mother No problems noted. Sister Seizure Bipolar disorder Maternal Grandmother Leukemia Breast cancer Paternal Grandmother Leukemia Cancer Maternal Uncle Liver cancer Heart attack Other Mental health problem Surgical History Surgical History Hx of breast augmentation History of abdominoplasty Social History Social History Household Members Other:: - 2 children Housing: House Alcohol intake: current Alcohol intake frequency: holidays/special occasions only Patient Tobacco Use Status: Former Tobacco user Quit Date: 4 yrs ago Tobacco use type: Cigarette Years Smoked: quit 2020 e-Cigarette/Vaping Use: Never Used Second Hand Smoke Exposure: No Use of substances other than those prescribed or required for medical reasons: No Are you DNR?: No Advance Directives: No Advance Directives Information Provided: Yes service: No Current occupational status: employed Cognitive needs: No Hearing needs: No Vision needs: No Meds Allergies Allergy/AdvReac Type Severity Reaction Status Date / Time paroxetine AdvReac Mild Stomach Verified 04/16/23 07:26 Upset sertraline [Zoloft] AdvReac Mild Stomach Verified 04/16/23 07:26 Upset Home Medications Medication Instructions Recorded Confirmed Last Taken Type melatonin 3 mg capsule 3 mg PO BEDTIME PRN Insomnia 05/16/20 04/16/23 Unknown History albuterol sulfate 90 mcg/actuation 2 puff PO QID PRN Shortness Of 04/16/23 04/16/23 Unknown History aerosol inhaler Breath Or Wheezing Exam Height,Weight and Vital Signs: Height 5 ft 5 in Weight 71.668 kg Pertinent Lab Results Pertinent Lab Results: Laboratory Tests 10/15/22 06:16 WBC 6.8 Hgb 12.8 Hct 38.5 Plt Count 308 Sodium 140 Potassium 4.8 Chloride 106 Carbon Dioxide 24 BUN 19 H Creatinine 0.89 Assessment and Plan Assessment Anesthesia Assessment: Chart Reviewed Documented by User: Ivy Navas MD 04/16/23 07:45 PMFSH Past Medical History Medical History Leukopenia Lower back pain Tobacco abuse Seizure disorder Migraine Anxiety and depression GERD (gastroesophageal reflux disease) Asthma Insomnia Family History Family History Father Mouth cancer Mother No problems noted. Sister Seizure Bipolar disorder Maternal Grandmother Leukemia Breast cancer Paternal Grandmother Leukemia Cancer Maternal Uncle Liver cancer Heart attack Other Mental health problem Family history of problems with anesthesia: No Surgical History Surgical History Hx of breast augmentation History of abdominoplasty History of Problems with Anesthesia: No Social History Social History Household Members Other:: - 2 children Housing: House Alcohol intake: current Alcohol intake frequency: holidays/special occasions only Patient Tobacco Use Status: Former Tobacco user Quit Date: 4 yrs ago Tobacco use type: Cigarette Years Smoked: quit 2020 e-Cigarette/Vaping Use: Never Used Second Hand Smoke Exposure: No Use of substances other than those prescribed or required for medical reasons: No Are you DNR?: No Advance Directives: No Advance Directives Information Provided: Yes service: No Current occupational status: employed Cognitive needs: No Hearing needs: No Vision needs: No Meds Allergies Allergy/AdvReac Type Severity Reaction Status Date / Time paroxetine AdvReac Mild Stomach Verified 04/16/23 07:26 Upset sertraline [Zoloft] AdvReac Mild Stomach Verified 04/16/23 07:26 Upset Home Medications Medication Instructions Recorded Confirmed Last Taken Type melatonin 3 mg capsule 3 mg PO BEDTIME PRN Insomnia 05/16/20 04/16/23 Unknown History albuterol sulfate 90 mcg/actuation 2 puff PO QID PRN Shortness Of 04/16/23 04/16/23 Unknown History aerosol inhaler Breath Or Wheezing Exam Airway Mallampati Class: II TM Dist: >3cm Neck ROM: Full Heart: rrr Lungs: cta Assessment and Plan Assessment Anesthesia Assessment: Anesthesia Plan Discussed Final Anesthetic Review Family History of Problems with Anesthesia: No History of Problems with Anesthesia: No NPO: Yes ASA Class: II Final Preanesthetic Review: No Changes in Pt Med Stat, Meds/Allgs Chart Reviewed, Consent Obtained/Reviewed and Anes Risks/Benef Reviewed Patient Risk: Intermediate Procedure Risk: Low Anesthetic Plan Anesthetic Plan: MAC: Disposition: Standard PACU
[2023-04-16 07:28] VITALS: BMI 27.3
[2023-04-16 07:40] VITALS: BP 109/73; PULSE 65; RESP 15; TEMP 35.9; O2SAT 100
[2023-04-16] MEDS: Lactated Ringers 1,000 ML 100 ML IVCONT (07:50)
--- NOTE | 2023-04-16 08:16 | MHC.SHP ---
Pre-Procedural Eval Section A Date of Service: 04/16/23 Section B Chief Complaint: Encounter for screening for malignant neoplasm of Relevant Family History (Specify if Yes): No Relevant Social History: None Present Medications: see Short Stay Collaborative assessment Medical History: Significant History (Leukopenia Lower back pain Tobacco abuse Seizure disorder Migraine Anxiety and depression GERD (gastroesophageal reflux disease) Asthma Insomnia) History of Previous Operations: Relevant previous surgery/procedure and date(s) (Hx of breast augmentation History of abdominoplasty) Allergies: Allergies Allergy/AdvReac Type Severity Reaction Status Date / Time paroxetine AdvReac Mild Stomach Verified 04/16/23 07:26 Upset sertraline [Zoloft] AdvReac Mild Stomach Verified 04/16/23 07:26 Upset Review of Systems Sugical H&P ROS: Negative: Constitution, Cardiovascular, Respiratory, Neurological, Psychiatric, Hem-Onc, Allergic/Immunologic, Gastrointestinal, Genitourinary, Musculoskeletal, Integumentary, Endocrine and Eyes/Ears/Nose/Throat Exam Surgical H&P Exam: Normal: HEENT, Normal: Heart, Normal: Lungs, Normal: Extremities, Normal: Abdomen, Normal: Skin and Normal: Neurological Plan Diagnosis/Plan: Unchanged I have reviewed the history and physical and performed a pertinent physical examination on my patient. No changes have occurred unless specified. Time Spent With Patient Time: Total time managing care of this patient today ____ minutes.
--- NOTE | 2023-04-16 08:17 | P.OP_ITS ---
Operative Note Operative Note Date of Service: 04/16/23 Narrative: Operative Information Procedure Description: Colonoscopy Indication: screening Anesthesia: MAC COLONOSCOPY Instrument: Olympus variable stiffness pediatric scope 190L Colonoscopy Monitoring: Vital signs and clinical assessment, continuous EKG monitoring, Pulse oximetry, Carbon Dioxide monitoring and blood pressure monitoring were done throughout the procedure. Colon withdrawal time was 12 minutes. Procedure: The patient was placed in the left lateral decubitis position and pre-procedure medications were administered. After a digital rectal examination of the ano-rectum, the video colonoscope was inserted into the rectum and advanced through the colon to the cecum/TI. The colonoscope was slowly withdrawn in a retrograde panoramic fashion and the colon mucosa was carefully examined including a retroflexed view of the rectum. Findings and interventions are described below. Procedure Difficulty: easy Findings: Terminal Ileum-normal Cecum:normal Ascending Colon: normal Transverse Colon -normal Descending Colon: 10 mm sessile polyp removed with cold snare Sigmoid Colon: mild diverticulosis Rectum: Retroflexion with small internal hemorrhoids, grade I Anorectum - normal Colon preparation: [place] Bowel Preparation Scale Right colon; 2 Transverse colon: 2 Left colon; 3 (0 = Unprepared colon segment with mucosa not seen due to solid stool that cannot be cleared. 1 = Portion of mucosa of the colon segment seen, but other areas of the colon segment not well seen due to staining, residual stool and/or opaque liquid. 2 = Minor amount of residual staining, small fragments of stool and/or opaque liquid, but mucosa of colon segment seen well. 3 = Entire mucosa of colon segment seen well with no residual staining, small fragments of stool or opaque liquid) Impression and Post Procedure Diagnosis: polyp internal hemorrhoids diverticular disease Plan: High fiber diet leaflet Avoid straining at stool, epsom salts and sitz bath, anusol supps or cream Repeat Colonoscopy in 5-6 years due to poylp removed today or earlier if clinically indicated Above findings were reviewed with the patient and relevant handouts were provided if indicated.
[2023-04-16 08:50] VITALS: BP 90/54; PULSE 80; RESP 17; TEMP 36.6; O2SAT 98
[2023-04-16 09:05] VITALS: BP 110/73; PULSE 61; RESP 16; TEMP 36.6; O2SAT 100
== END 2023-04-16 09:46 | disposition home or self-care (01) ==
PROVIDERS: PCP Internal Medicine; Visit Provider Internal Medicine Gastroenterology
PROC: 0DJD8ZZ Inspection of Lower Intestinal Tract, Via Natural or Artificial Opening Endoscopic (ICD-10-PCS; CPT 45378; principal; 2023-04-16 08:30)
DX: Z12.11 Encounter for screening for malignant neoplasm of colon (principal); D12.4 Benign neoplasm of descending colon; K57.30 Diverticulosis of large intestine without perforation or abscess without bleeding; K64.0 First degree hemorrhoids; K21.9 Gastro-esophageal reflux disease without esophagitis; G40.909 Epilepsy, unspecified, not intractable, without status epilepticus; G43.909 Migraine, unspecified, not intractable, without status migrainosus; G47.00 Insomnia, unspecified; D72.819 Decreased white blood cell count, unspecified; J45.909 Unspecified asthma, uncomplicated; M54.50 Low back pain, unspecified; F41.8 Other specified anxiety disorders; Z88.8 Allergy status to other drugs, medicaments and biological substances; Z87.891 Personal history of nicotine dependence
CPT/HCPCS: 45385; 88305; J2704

== ENCOUNTER → 2023-04-16 06:38 | Outpatient (BNV) | payer OTHER, SELFPAY | PROVIDERS: PCP Internal Medicine; Visit Provider Internal Medicine Gastroenterology | DX: Z12.11 Encounter for screening for malignant neoplasm of colon (principal); K63.5 Polyp of colon; K57.30 Diverticulosis of large intestine without perforation or abscess without bleeding; K64.0 First degree hemorrhoids | CPT/HCPCS: 45385 ==

== ENCOUNTER 2023-06-23 06:34 | Outpatient (REF) | payer OTHER, SELFPAY ==
[2023-06-23 06:56] LABS: MANUAL DIFF FLAG NO
[2023-06-23 07:20] LABS: Basophils Percent Auto 0.3 % (0-2); Eosinophils Absolute Auto 0.3 X10*3/uL (0.0-0.4); Eosinophils Percent Auto 5.9 % (0-4); Hematocrit 40.7 % (37.0-47.0); Hemoglobin 13.9 g/dl (12.0-16.0); Imm Gran Abs Auto 0.01 X10*3/uL (0.00-0.03); Imm Gran Pct Auto 0.2 % (0.0-0.4); Lymphocytes Absolute Auto 2.2 X10*3/uL (1.2-4.9); Lymphocytes Percent Auto 37.8 % (20-40); Mean Corpuscular HGB Conc 34.2 g/dl (31.0-35.0); Mean Corpuscular Hemoglobin 31.2 pg (27.0-33.0); Mean Corpuscular Volume 91.3 fL (80.0-98.0); Mean Platelet Volume 9.3 fL (9.4-12.3); Monocytes Absolute Auto 0.4 X10*3/uL (0.1-1.2); Monocytes Percent Auto 6.6 % (2-11); Neutrophils Absolute Auto 2.8 x10*3/uL (2.0-8.3); Neutrophils Percent Auto 49.2 % (45-73); Platelet Count 334 X10*3/uL (160-400); Red Blood Count 4.46 X10*6/uL (4.20-5.50); Red Cell Distribution Width 12.9 % (11.0-16.0); White Blood Count 5.8 X10*3/uL (4.8-10.8)
[2023-06-23 07:22] LABS: Appearance Urine Clear; Color Urine Dark Yellow; Glucose Urine UA Negative (Negative); Leukocyte Esterase Urine Negative (Negative); Nitrite Urine Negative (Negative); PH 6.5 (5.0-9.0); Specific Gravity - Urine 1.025 (1.005-1.025); Urine Blood Negative (Negative); Urine Ketones Negative (Negative); Urine Protein Negative (Neg-Trace)
[2023-06-23 07:26] LABS: INTERNATIONAL NORM RATIO 0.9 (0.9-1.1); Prothrombin Time 10.5 SEC (11.1-13.3)
[2023-06-23 07:54] LABS: Estimated Average Glucose 100 mg/dL; Hemoglobin A1c % 5.1 % (<6.0)
[2023-06-23 08:08] LABS: Alanine Aminotransferase 19 U/L (0-31); Albumin Level 4.4 g/dL (3.5-5.0); Alkaline Phosphatase 73 U/L (39-117); Anion Gap 12 (12-20); Aspartate Amino Transferase 16 U/L (5-31); Bilirubin Total 0.5 mg/dL (0.0-1.0); Blood Urea Nitrogen 13 mg/dL (9-16); Calcium 9.8 mg/dL (8.4-10.2); Carbon Dioxide 28 mmol/L (22-29); Chloride 106 mmol/L (96-108); Estimated Glomerular Filt Rate > 60; Glucose Random 86 mg/dL (60-115); Potassium 4.9 mmol/L (3.3-5.1); Sodium 141 mmol/L (135-145); Total Protein 7.8 g/dL (6.5-8.0)
[2023-06-23 08:17] LABS: HCG Quantitative < 2 mIU/mL
[2023-06-23 08:55] LABS: HIV AB/AG Nonreactive (Nonreactive); HIV Num 1 0.06 S/CO (0.00-0.99); ~HepC Num1 0.16 S/CO (0.00-0.79); ~Hepatitis C Antibody Nonreactive (Nonreactive)
== END 2023-06-23 06:35 | disposition home or self-care (01) ==
LOC: HO.LAB 06:34
PROVIDERS: PCP Internal Medicine; Visit Provider Surgery Plastic and Reconstructive Surgery
DX: Z01.818 Encounter for other preprocedural examination (principal)
CPT/HCPCS: 36415; 80053; 81003; 83036; 84443; 84702; 85025; 85610; 85730; 86803; 87389

== ENCOUNTER 2023-06-24 07:36 | Outpatient (AMB) | payer OTHER, SELFPAY ==
[2023-06-24 07:53] VITALS: BP 134/78; PULSE 68; O2SAT 98; BMI 25.8
--- NOTE | 2023-06-24 07:53 | A.OFFPC_ITS ---
Vital Signs 06/24/23 07:53 Height 5 ft 5 in Weight 155 lb BMI 25.8 BP 134/78 Blood Pressure Location Lt brachial Position Sitting Pulse 68 Pulse Source Pulse Oximeter Pulse Oximetry (%) 98 Oxygen Delivery Method Room Air Intake Visit Reasons: Clearance for breast implant removal 07/06/23 Allergies bupropion [From Wellbutrin] Adverse Reaction (Intermediate, Unverified 06/24/23 08:11) Seizure paroxetine Adverse Reaction (Mild, Verified 06/24/23 07:53) Stomach Upset sertraline [Zoloft] Adverse Reaction (Mild, Verified 06/24/23 07:53) Stomach Upset Medication List - Last Reconciled 06/24/23 by Suzanne Weiss MD albuterol sulfate 90 mcg/actuation 2 puffs PO QID PRN ascorbic acid (vitamin C) 1 g PO DAILY buspirone 5 mg PO BID cyanocobalamin (vitamin B-12) 1,000 mcg PO DAILY hydroxyzine HCl 25 mg PO BID PRN melatonin 3 mg PO BEDTIME PRN multivitamin 1 tab PO DAILY zolpidem (Ambien) 5 mg PO BEDTIME PRN Tobacco use date assessed: 06/24/23 Dental Screening Dental Screen Date: 06/24/23 Did you have a dental visit in the last 12 months?: Yes Did you have a dental problem in the last 6 months where you did not have access to dental care?: No Was dental information given to patient?: Patient has dentist HPI Clearance for breast implant removal 07/06/23 HPI Details 53-year-old female with asthma, seizure disorder, migraine generalized anxiety disorder hypercholesterolemia last seen December 2022. Patient is here for preoperative evaluation for breast surgery breast implant removal 07/06/2023. Review of the notes patient just had colonoscopy done April 2023 [facility] Dr. Nicholas Caro. [facility] Medical History (Updated 06/24/23 @ 08:08 by Suzanne Weiss MD) Colon cancer screening Leukopenia Lower back pain Tobacco abuse Seizure disorder Migraine Anxiety and depression GERD (gastroesophageal reflux disease) Asthma Insomnia Surgical History Hx of breast augmentation History of abdominoplasty Family History Father Mouth cancer Mother No problems noted. Sister Seizure Bipolar disorder Maternal Grandmother Leukemia Breast cancer Paternal Grandmother Leukemia Cancer Maternal Uncle Liver cancer Heart attack Other Mental health problem Social History (Updated 06/24/23 @ 08:16 by Suzanne Weiss MD) Household Members Other:: - 2 children Housing: House Alcohol intake: current Alcohol intake frequency: holidays/special occasions only Comment: 1-2 x a month 2 drinks Patient Tobacco Use Status: Former Tobacco user Quit Date: 4 yrs ago Tobacco use type: Cigarette Years Smoked: quit 2020 e-Cigarette/Vaping Use: Never Used Second Hand Smoke Exposure: No service: No Current occupational status: employed Cognitive needs: No Hearing needs: No Vision needs: No Questionnaire PHQ-9 Over the last 2 weeks, how often have you been bothered by any of the following problems? 1. Little interest or pleasure in doing things: not at all 2. Feeling down, depressed, or hopeless: not at all 3. Trouble falling or staying asleep, or sleeping too much: not at all 4. Feeling tired or having little energy: not at all 5. Poor appetite or overeating: not at all 6. Feeling bad about yourself - or that you are a failure or have let yourself or your family down: not at all 7. Trouble concentrating on things, such as reading the newspaper or watching television: not at all 8. Moving or speaking so slowly that other people could have noticed. Or the opposite - being so fidgety or restless that you have been moving around a lot more than usual: not at all 9. Thoughts that you would be better off or of hurting yourself in some way: not at all Total score: 0 Depression Screening Interpretation: Negative Depression Screening Done: Yes 03873 - PHQ-9 Billing: Yes Source: Developed by Drs. Moisés Pratt, Amanda Peoples, Alirio Molina and colleagues, with an educational presley from [employer]. Thrive Questionnaire Date Thrive assessed: 06/24/23 I am a: Patient What is your living situation today?: I have a steady place to live Within the past 12 months, did the food you bought not last and you didn't have the money to get more?: Never true Within the past 12 months, did you worry whether your food would run out before you got money to buy more?: Never true Do you have trouble paying for medicines?: No Do you have trouble getting transportation to medical appointments?: No Do you have trouble paying your heating and electricity bill?: No Do you have trouble taking care of your child, family member or friend?: No Do you have trouble with day-to-day activities such as bathing, preparing meals, shopping, managing finances, etc.?: No Are you currently unemployed and looking for a job?: No Are you interested in more education?: No Currently or been in a relationship where the following occur: no concerns reported THRIVE Score: 0 AUDIT C Alcohol Use Questionnaire (AUDIT-C) 1. How often do you have a drink containing alcohol?: Monthly or less (social ) 2. How many drinks containing alcohol do you have on a typical day when you are drinking?: 1 or 2 3. How often do you have six or more drinks on one occasion?: Never Total Score: 1 Score Reviewed/Action Taken: No NICOLASA-7 AMB Questionnaire NICOLASA-7 Date NICOLASA - 7 assessed: 06/24/23 Feeling nervous, anxious, or on edge: 0 = Not at all Not being able to stop or control worryin = Not at all Worrying too much about different things: 0 = Not at all Trouble relaxin = Not at all Being so restless that it is hard to sit still: 0 = Not at all Becoming easily annoyed or irritable: 0 = Not at all Feeling afraid as if something awful might happen: 0 = Not at all Total NICOLASA-7 score (0-4 normal; 5-9 mild; 10-14 moderate; 15-21 severe): 0 Source: Developed by Drs. Moisés Pratt, Amanda Peoples, Alirio Molina and colleagues, with an educational presley from [employer]. Review of Systems Const Denies poor appetite and Denies weakness Eyes Denies no additional complaints ENT Reports Normal hearing present, Denies dizziness, Denies nasal congestion, Denies tinnitus and Denies sore throat Card Denies chest pain, Denies syncope, Denies rapid heart rate and Denies dyspnea Resp Denies cough and Denies dyspnea GI Denies change in stool character, Reports constipation, Denies diarrhea, Denies nausea and Denies vomiting Denies urinary frequency, Denies difficulty voiding and Denies dysuria Neuro Reports Normal hearing present, Denies confusion, Denies dizziness, Denies synco pe and Denies weakness Psych Denies confusion Physical exam (Primary Care) Vital Signs: Last Vital Signs Pulse 68 06/24/23 07:53 BP 134/78 06/24/23 07:53 Pulse Ox 98 06/24/23 07:53 Oxygen Delivery Method Room Air 06/24/23 07:53 BMI result Body Mass Index 25.8 Tobacco/Smoking Status: Tobacco use Status Tobacco use date assessed 06/24/23 06/24/23 07:58 Patient Tobacco Use Status Former Tobacco user 06/24/23 07:58 Tobacco use type Cigarette 06/24/23 07:58 e-Cigarette/Vaping Use Never Used 06/24/23 07:58 PHQ-9: PHQ-9 Score PHQ-9: Total score 0 06/24/23 07:58 Depression Screening Interpretation: Negative Thrive Assessment: Date of Thrive Assessment Date Thrive assessed 06/24/23 06/24/23 07:58 Currently or been in a relationship where the following occur: no concerns reported Const General: No confusion Orientation/consciousness: No confusion Eyes Conjunctivae: conjunctivae normal Resp Auscultation: clear to auscultation bilaterally Cardio Rate: regular rate Rhythm: regular rhythm GI Inspection: Yes normal to inspection Neuro General: No confusion Cranial nerves: Yes Normal hearing present Extrem General: Yes normal to inspection and No edema Assessment and Plan Assessment & Plan (1) Preop exam for internal medicine: Code(s): Z01.818 - Encounter for other preprocedural examination Plan: Blood work and EKG evaluated. Discussed with the patient regarding aspirin and NSAIDs to discontinue 1 week prior to the procedure Patient is in the low risk category for cardiac complications. No further workup needed at this time and may proceed with the contemplated procedure. Thank you very much for letting me participate the care of this patient (2) Seizure disorder: Comment: last sz 11/2022 Code(s): G40.909 - Epilepsy, unspecified, not intractable, without status epilepticus Plan: Occurred as side effect of the medication Wellbutrin. (3) Asthma: Code(s): J45.909 - Unspecified asthma, uncomplicated Qualifiers: Asthma severity: mild Asthma persistence: intermittent Asthma c omplication type: uncomplicated Qualified Code(s): J45.20 - Mild intermittent asthma, uncomplicated Plan: Continue with albuterol inhaler as needed (4) Migraine: Code(s): G43.909 - Migraine, unspecified, not intractable, without status migrainosus Plan: Stable (5) Insomnia: Code(s): G47.00 - Insomnia, unspecified Qualifiers: Insomnia type: primary Qualified Code(s): F51.01 - Primary insomnia Plan: Continue with the medication as needed (6) Hypercholesterolemia: Code(s): E78.00 - Pure hypercholesterolemia, unspecified Plan: Avoid fried foods, chicken skin, eggs, butter margarine, pastries and meat. Be it pork or beef they have a lot of cholesterol Orders: Orders AMB EKG-In Office Today Z01.818 - Encounter for other preprocedural examination XR chest 2V Today Z01.818 - Encounter for other preprocedural examination Medications: Changed From hydroxyzine HCl 25 mg PO BID PRN 60 tabs 2RF anxiety F41.1 - Generalized anxiety disorder To hydroxyzine HCl allergies 25 mg PO BID PRN anxiety F41.1 - Generalized anxiety disorder Coding Level of Care Code Est Pt Level 4 (42120) Diagnoses Preop exam for internal medicine Z01.818 Seizure disorder G40.909 Mild intermittent asthma without complication J45.20 Asthma severity: mild Asthma persistence: intermittent Asthma complication type: uncomplicated Migraine G43.909 Primary insomnia F51.01 Insomnia type: primary Hypercholesterolemia E78.00
== END 2023-06-24 09:04 | disposition home or self-care (01) ==
PROVIDERS: PCP Internal Medicine; Visit Provider Internal Medicine
DX: Z01.818 Encounter for other preprocedural examination (principal); G40.909 Epilepsy, unspecified, not intractable, without status epilepticus; J45.20 Mild intermittent asthma, uncomplicated; G43.909 Migraine, unspecified, not intractable, without status migrainosus; F51.01 Primary insomnia; E78.00 Pure hypercholesterolemia, unspecified
CPT/HCPCS: 99214

== ENCOUNTER 2023-06-24 08:46 | Outpatient (REF) | payer OTHER, SELFPAY ==
--- NOTE | ~2023-06-24 | XR_ITS ---
EXAMINATION: XR CHEST CLINICAL INFORMATION: Preoperative chest x-ray. COMPARISON: None available. TECHNIQUE: 2 views of the chest were obtained. FINDINGS: The lungs are well-inflated. There is no gross pneumothorax. Heart size is normal. No pleural effusion. Mild degenerative changes in the thoracic spine. No focal consolidation to suggest pneumonia. XR/XR chest 2V IMPRESSION: No evidence of pneumonia.
== END 2023-06-24 08:47 | disposition home or self-care (01) ==
LOC: HO.XRAY 08:46
PROVIDERS: PCP Internal Medicine; Visit Provider Surgery Plastic and Reconstructive Surgery
DX: Z01.818 Encounter for other preprocedural examination (principal)
CPT/HCPCS: 71046

== ENCOUNTER 2023-07-13 16:18 | Outpatient (AMB) | payer OTHER, SELFPAY ==
[2023-07-13 16:22] VITALS: BP 92/68; PULSE 62; O2SAT 96; BMI 26.3
--- NOTE | 2023-07-13 16:22 | MHC.PC.OV ---
Vital Signs 07/13/23 16:22 Height 5 ft 5 in Weight 158 lb 0.2 oz BMI 26.3 BP 92/68 Blood Pressure Location Lt brachial Position Sitting Pulse 62 Pulse Source Pulse Oximeter Pulse Oximetry (%) 96 Oxygen Delivery Method Room Air Intake Visit Reasons: PE Intake Note: Patient is here today for a physical. Document Review Attorney Required: No Allergies bupropion [From Wellbutrin] Adverse Reaction (Intermediate, Verified 07/13/23 16:22) Seizure paroxetine Adverse Reaction (Mild, Verified 07/13/23 16:22) Stomach Upset sertraline [Zoloft] Adverse Reaction (Mild, Verified 07/13/23 16:22) Stomach Upset Medication List - Last Reconciled 07/13/23 by Suzanne Weiss MD albuterol sulfate 90 mcg/actuation 2 puffs PO QID PRN ascorbic acid (vitamin C) 1 g PO DAILY buspirone 5 mg PO BID cyanocobalamin (vitamin B-12) 1,000 mcg PO DAILY hydroxyzine HCl 25 mg PO BID PRN multivitamin 1 tab PO DAILY zolpidem (Ambien) 5 mg PO BEDTIME PRN Tobacco use date assessed: 07/13/23 Dental Screening Dental Screen Date: 07/13/23 Did you have a dental visit in the last 12 months?: Yes Did you have a dental problem in the last 6 months where you did not have access to dental care?: No Was dental information given to patient?: Patient has dentist HPI PE HPI Details 53-year-old female with history of seizure disorder, asthma, migraine hypercholesterolemia and insomnia coming in for physical exam last seen in June for preoperative evaluation for breast augmentation. Surgery was canceled due to the concerns of seizure. [facility] Medical History (Updated 06/24/23 @ 08:08 by Suzanne Weiss MD) Colon cancer screening Leukopenia Lower back pain Tobacco abuse Seizure disorder Migraine Anxiety and depression GERD (gastroesophageal reflux disease) Asthma Insomnia Surgical History Hx of breast augmentation History of abdominoplasty Family History Father Mouth cancer Mother No problems noted. Sister Seizure Bipolar disorder Maternal Grandmother Leukemia Breast cancer Paternal Grandmother Leukemia Cancer Maternal Uncle Liver cancer Heart attack Other Mental health problem Social History (Updated 06/24/23 @ 08:16 by Suzanne Weiss MD) Household Members Other:: - 2 children Housing: House Alcohol intake: current Alcohol intake frequency: holidays/special occasions only Comment: 1-2 x a month 2 drinks Patient Tobacco Use Status: Former Tobacco user Quit Date: 4 yrs ago Tobacco use type: Cigarette Years Smoked: quit 2020 e-Cigarette/Vaping Use: Never Used Second Hand Smoke Exposure: No service: No Current occupational status: employed Cognitive needs: No Hearing needs: No Vision needs: No Questionnaire PHQ-9 Over the last 2 weeks, how often have you been bothered by any of the following problems? 1. Little interest or pleasure in doing things: not at all 2. Feeling down, depressed, or hopeless: not at all 3. Trouble falling or staying asleep, or sleeping too much: not at all 4. Feeling tired or having little energy: not at all 5. Poor appetite or overeating: not at all 6. Feeling bad about yourself - or that you are a failure or have let yourself or your family down: not at all 7. Trouble concentrating on things, such as reading the newspaper or watching television: not at all 8. Moving or speaking so slowly that other people could have noticed. Or the opposite - being so fidgety or restless that you have been moving around a lot more than usual: not at all 9. Thoughts that you would be better off or of hurting yourself in some way: not at all Total score: 0 Depression Screening Interpretation: Negative Depression Screening Done: Yes 15038 - PHQ-9 Billing: Yes Source: Developed by Drs. Moisés Pratt, Amanda Peoples, Alirio Molina and colleagues, with an educational presley from [employer]. Thrive Questionnaire Date Thrive assessed: 06/24/23 I am a: Patient What is your living situation today?: I have a steady place to live Within the past 12 months, did the food you bought not last and you didn't have the money to get more?: Never true Within the past 12 months, did you worry whether your food would run out before you got money to buy more?: Never true Do you have trouble paying for medicines?: No Do you have trouble getting transportation to medical appointments?: No Do you have trouble paying your heating and electricity bill?: No Do you have trouble taking care of your child, family member or friend?: No Do you have trouble with day-to-day activities such as bathing, preparing meals, shopping, managing finances, etc.?: No Are you currently unemployed and looking for a job?: No Are you interested in more education?: No Currently or been in a relationship where the following occur: no concerns reported THRIVE Score: 0 AUDIT C Alcohol Use Questionnaire (AUDIT-C) 1. How often do you have a drink containing alcohol?: Monthly or less (social ) 2. How many drinks containing alcohol do you have on a typical day when you are drinking?: 1 or 2 3. How often do you have six or more drinks on one occasion?: Never Total Score: 1 Score Reviewed/Action Taken: No NICOLASA-7 AMB Questionnaire NICOLASA-7 Date NICOLASA - 7 assessed: 06/24/23 Feeling nervous, anxious, or on edge: 0 = Not at all Not being able to stop or control worryin = Not at all Worrying too much about different things: 0 = Not at all Trouble relaxin = Not at all Being so restless that it is hard to sit still: 0 = Not at all Becoming easily annoyed or irritable: 0 = Not at all Feeling afraid as if something awful might happen: 0 = Not at all Total NICOLASA-7 score (0-4 normal; 5-9 mild; 10-14 moderate; 15-21 severe): 0 Source: Developed by Drs. Moisés Pratt, Amanda Peoples, Alirio Molina and colleagues, with an educational presley from [employer]. NICOLASA-7 Assessment Billing NICOLASA-7 Assessment Tool: NICOLASA-7 Assessment 92929 Review of Systems Const Denies poor appetite and Denies weakness Eyes Denies no additional complaints ENT Reports Normal hearing present, Denies dizziness, Denies nasal congestion, Denies tinnitus and Denies sore throat Card Denies chest pain, Denies syncope, Denies rapid heart rate and Denies dyspnea Resp Denies cough and Denies dyspnea GI Denies change in stool character, Reports constipation, Denies diarrhea, Denies nausea and Denies vomiting Denies urinary frequency, Denies difficulty voiding and Denies dysuria Neuro Reports Normal hearing present, Denies confusion, Denies dizziness, Denies syncope and Denies weakness Psych Denies confusion Physical exam (Primary Care) Vital Signs: Last Vital Signs Pulse 62 07/13/23 16:22 BP 92/68 07/13/23 16:22 Pulse Ox 96 07/13/23 16:22 Oxygen Delivery Method Room Air 07/13/23 16:22 BMI result Body Mass Index 26.3 Tobacco/Smoking Status: Tobacco use Status Tobacco use date assessed 07/13/23 07/13/23 16:23 Patient Tobacco Use Status Former Tobacco user 07/13/23 16:23 Tobacco use type Cigarette 07/13/23 16:23 e-Cigarette/Vaping Use Never Used 07/13/23 16:23 PHQ-9: PHQ-9 Score PHQ-9: Total score 0 07/13/23 16:54 Depression Screening Interpretation: Negative Thrive Assessment: Date of Thrive Assessment Date Thrive assessed 06/24/23 07/13/23 16:23 Currently or been in a relationship where the following occur: no concerns reported Const General: No confusion Orientation/consciousness: No confusion HENMT Head: Yes normocephalic Ears: external ears normal and TM's normal bilaterally Face and sinus: Yes normal facial exam Mouth: moist mucous membranes Throat: Yes tonsils normal Eyes Conjunctivae: conjunctivae normal Pupils: Equal, round and reactive pupils present and Pupil accommodation reflex normal Direct Ophthalmoscopy: normal light reflex Neck Neck: No lymphadenopathy Thyroid: Thyroid normal Chest Chest palpation & inspection: normal inspection of the chest Resp Effort & Inspection: normal respiratory effort and no audible wheezes Auscultation: clear to auscultation bilaterally, no crackles, no wheezes and lung sounds not diminished Cardio Rate: regular rate Rhythm: regular rhythm Peripheral pulses: radial pulses present and dorsalis pedis present GI Palpation (GI): no masses Auscultation: normal bowel sounds and normoactive bowel sounds Rectal Exam - Female: deferred Skin General skin exam: no rashes or lesions noted Rashes: no rashes Neuro General: No confusion Cranial nerves: Yes Equal, round and reactive pupils present and Yes Normal hearing present Cognition (Neuro): normal cognition Gait exam (Neuro): Normal gait present Motor exam (neuro): 5/5 motor strength present throughout Deep tendon reflexes (DTR's): Right brachioradialis reflex intensity grade: 2+, Left brachioradialis reflex intensity grade: 2+, Right patellar reflex intensity grade: 2+ and Left patellar reflex intensity grade: 2+ Extrem General: No edema Assessment and Plan Assessment & Plan (1) Annual physical exam: Code(s): Z00.00 - Encounter for general adult medical examination without abnormal findings (2) Insomnia: Code(s): G47.00 - Insomnia, unspecified Qualifiers: Insomnia type: primary Qualified Code(s): F51.01 - Primary insomnia Plan: Continue with medication as needed zolpidem (3) Asthma: Code(s): J45.909 - Unspecified asthma, uncomplicated Qualifiers: Asthma severity: mild Asthma persistence: intermittent Asthma complication type: uncomplicated Qualified Code(s): J45.20 - Mild intermittent asthma, uncomplicated Plan: Continue with the inhaler as needed (4) Migraine: Code(s): G43.909 - Migraine, unspecified, not intractable, without status migrainosus Plan: Stable (5) Seizure disorder: Comment: last sz 11/2022 Code(s): G40.909 - Epilepsy, unspecified, not intractable, without status epilepticus Plan: Stable (6) Generalized anxiety disorder: Comment: Declined any referral for counseling Code(s): F41.1 - Generalized anxiety disorder Plan: Continue with medication (7) Hypercholesterolemia: Code(s): E78.00 - Pure hypercholesterolemia, unspecified Plan: Avoid fried foods, chicken skin, eggs, butter margarine, pastries and meat. Be it pork or beef they have a lot of cholesterol LDL goal of less than 130 and triglyceride of less than 150 Orders: Orders Comprehensive Met. Panel 3 Months E78.00 - Pure hypercholesterolemia, unspecified Free T4 (Free Thyroxine) 3 Months E78.00 - Pure hypercholesterolemia, unspecified Lipid Panel 3 Months E78.00 - Pure hypercholesterolemia, unspecified Vitamin B12 and Folate 3 Months E78.00 - Pure hypercholesterolemia, unspecified Complete Blood Count Auto Diff 3 Months E78.00 - Pure hypercholesterolemia, unspecified Thyroid Stimulating Hormone 3 Months E78.00 - Pure hypercholesterolemia, unspecified Vitamin D 25-OH Total 3 Months E78.00 - Pure hypercholesterolemia, unspecified Coding Level of Care Code Est Pt Prev Care 40-64y(79311) Diagnoses Annual physical exam Z00.00 Primary insomnia F51.01 Insomnia type: primary Mild intermittent asthma without complication J45.20 Asthma severity: mild Asthma persistence: intermittent Asthma complication type: uncomplicated Migraine G43.909 Seizure disorder G40.909 Generalized anxiety disorder F41.1 Hypercholesterolemia E78.00 Additional Codes NICOLASA-7 Assessment Billing - NICOLASA-7 Assessment Tool: NICOLASA-7 Assessment 04075 ([id number])
== END 2023-07-13 17:28 | disposition home or self-care (01) ==
PROVIDERS: PCP Internal Medicine; Visit Provider Internal Medicine
DX: Z00.00 Encounter for general adult medical examination without abnormal findings (principal); G40.909 Epilepsy, unspecified, not intractable, without status epilepticus; F51.01 Primary insomnia; J45.20 Mild intermittent asthma, uncomplicated; G43.909 Migraine, unspecified, not intractable, without status migrainosus; F41.1 Generalized anxiety disorder; E78.00 Pure hypercholesterolemia, unspecified
CPT/HCPCS: 99396

== ENCOUNTER → 2023-07-27 06:30 | Outpatient (REF) | payer OTHER, SELFPAY ==
--- NOTE | ~2023-07-27 | XR_ITS ---
EXAMINATION: XR CHEST 2 VIEWS CLINICAL INFORMATION: Preoperative examination. COMPARISON: Chest radiographs dated 06/24/2023. TECHNIQUE: Frontal and lateral views of the chest were obtained. FINDINGS: The heart, great vessels, pulmonary vasculature and mediastinum are normal. The lungs show no focal infiltrate, effusion or pneumothorax. There is no acute osseous abnormality. Breast implants are noted. XR/XR chest 2V IMPRESSION: No active cardiopulmonary disease.
[2023-07-27 06:50] LABS: MANUAL DIFF FLAG NO
--- NOTE | 2023-07-27 07:18 | ECG_ITS ---
Test Reason : Z01.818 preprocedural encounter Blood Pressure : / mmHG Vent. Rate : 057 BPM Atrial Rate : 057 BPM P-R Int : 150 ms QRS Dur : 080 ms QT Int : 422 ms P-R-T Axes : 044 021 029 degrees QTc Int : 410 ms Sinus bradycardia Nonspecific T wave abnormality Abnormal ECG When compared with ECG of 25-JUL-2013 11:48, No significant change was found Referred By: Suzanne Weiss Electronically Signed By:WILBUR SHORE MD
[2023-07-27 08:02] LABS: Basophils Percent Auto 0.5 % (0-2); Eosinophils Absolute Auto 0.5 X10*3/uL (0.0-0.4); Eosinophils Percent Auto 8.2 % (0-4); Hematocrit 39.4 % (37.0-47.0); Hemoglobin 13.3 g/dl (12.0-16.0); Imm Gran Abs Auto 0.03 X10*3/uL (0.00-0.03); Imm Gran Pct Auto 0.5 % (0.0-0.4); Lymphocytes Absolute Auto 2.3 X10*3/uL (1.2-4.9); Lymphocytes Percent Auto 36.2 % (20-40); Mean Corpuscular HGB Conc 33.8 g/dl (31.0-35.0); Mean Corpuscular Hemoglobin 30.8 pg (27.0-33.0); Mean Corpuscular Volume 91.2 fL (80.0-98.0); Mean Platelet Volume 9.6 fL (9.4-12.3); Monocytes Absolute Auto 0.5 X10*3/uL (0.1-1.2); Monocytes Percent Auto 7.4 % (2-11); Neutrophils Percent Auto 47.2 % (45-73); Platelet Count 347 X10*3/uL (160-400); Red Blood Count 4.32 X10*6/uL (4.20-5.50); Red Cell Distribution Width 12.7 % (11.0-16.0); White Blood Count 6.4 X10*3/uL (4.8-10.8)
[2023-07-27 08:02] LABS: Urine Pregnancy NEGATIVE (NEGATIVE)
[2023-07-27 08:03] LABS: UPreg QC Valid YES
[2023-07-27 08:41] LABS: HCG Quantitative < 2 mIU/mL
[2023-07-27 08:45] LABS: Anion Gap 10 (12-20)
[2023-07-27 08:47] LABS: Blood Urea Nitrogen 17 mg/dL (9-16); Calcium 9.9 mg/dL (8.4-10.2); Carbon Dioxide 29 mmol/L (22-29); Chloride 106 mmol/L (96-108); Estimated Glomerular Filt Rate > 60; Glucose Random 84 mg/dL (60-115); Potassium 4.5 mmol/L (3.3-5.1); Sodium 140 mmol/L (135-145)
== END ==
LOC: HO.CARD 06:30
PROVIDERS: PCP Internal Medicine; Visit Provider Specialist
DX: Z01.818 Encounter for other preprocedural examination (principal)
CPT/HCPCS: 36415; 71046; 80048; 81025; 84702; 85025; 93005

== ENCOUNTER → 2023-07-27 07:18 | Outpatient (BNV) | payer OTHER, SELFPAY | PROVIDERS: PCP Internal Medicine; Visit Provider Internal Medicine Cardiovascular Disease | DX: R00.1 Bradycardia, unspecified (principal); Z01.810 Encounter for preprocedural cardiovascular examination | CPT/HCPCS: 93010 ==

== ENCOUNTER 2024-03-22 14:06 | Outpatient (AMB) | payer OTHER, SELFPAY ==
[2024-03-22 14:12] VITALS: BP 124/78; PULSE 85; O2SAT 98; BMI 25.0
--- NOTE | 2024-03-22 14:12 | MHC.PC.OV ---
Vital Signs 03/22/24 14:12 Height 5 ft 5 in Weight 150 lb BMI 25.0 BP 124/78 Blood Pressure Location Lt brachial Position Sitting Pulse 85 Pulse Source Pulse Oximeter Pulse Oximetry (%) 98 Oxygen Delivery Method Room Air Intake Visit Reasons: Stomach Issues , vomiting and lump Allergies bupropion [From Wellbutrin] Adverse Reaction (Intermediate, Verified 03/22/24 14:12) Seizure paroxetine Adverse Reaction (Mild, Verified 03/22/24 14:12) Stomach Upset sertraline [Zoloft] Adverse Reaction (Mild, Verified 03/22/24 14:12) Stomach Upset Tobacco use date assessed: 07/13/23 Dental Screening Dental Screen Date: 07/13/23 HPI Stomach Issues , vomiting and lump HPI Details The patient is a 53-year-old female presenting with nausea and vomiting. She reports that for the last month, she has experienced significant nausea and frequent vomiting after eating, describing a sensation of a lump in her stomach. There is no associated fever, change in bowel movements, or significant pain radiating to the regions typically indicative of gallbladder issues. No recent changes in her medications have been reported except for using an albuterol inhaler with increased frequency due to episodes of shortness of breath and fatigue. Her medical history is notable for hyperlipidemia, asthma treated with as-needed albuterol, a past surgery of an abdominal tummy tuck, and ongoing Vitamin D deficiency managed with 50,000 units weekly. Additionally, she reports severe menopausal symptoms, including hot flashes and mood disturbances, which have significantly affected her sleep quality. She has been menopausal since the age of around 50. Her last cholesterol test revealed elevated LDL levels of 142 mg/dL. She denied surgical interventions on her stomach beyond the cosmetic procedure and has been taking Hydroxyzine, Buspirone, and multivitamins regularly. [facility] Medical History (Updated 03/22/24 @ 14:36 by Suzanne Weiss MD) GERD (gastroesophageal reflux disease) Colon cancer screening Leukopenia Lower back pain Tobacco abuse Seizure disorder Migraine Anxiety and depression Asthma Insomnia Surgical History Hx of breast augmentation History of abdominoplasty Family History Father Mouth cancer Mother No problems noted. Sister Seizure Bipolar disorder Maternal Grandmother Leukemia Breast cancer Paternal Grandmother Leukemia Cancer Maternal Uncle Liver cancer Heart attack Other Mental health problem Social History (Updated 06/24/23 @ 08:16 by Suzanne Weiss MD) Household Members Other:: - 2 children Housing: House Alcohol intake: current Alcohol intake frequency: holidays/special occasions only Comment: 1-2 x a month 2 drinks Patient Tobacco Use Status: Former Tobacco user Tobacco use type: Cigarette Years Smoked: quit 2020 e-Cigarette/Vaping Use: Never Used Second Hand Smoke Exposure: No service: No Current occupational status: employed Cognitive needs: No Hearing needs: No Vision needs: No Questionnaire PHQ-9 Over the last 2 weeks, how often have you been bothered by any of the following problems? 1. Little interest or pleasure in doing things: not at all 2. Feeling down, depressed, or hopeless: not at all 3. Trouble falling or staying asleep, or sleeping too much: not at all 4. Feeling tired or having little energy: not at all 5. Poor appetite or overeating: not at all 6. Feeling bad about yourself - or that you are a failure or have let yourself or your family down: not at all 7. Trouble concentrating on things, such as reading the newspaper or watching television: not at all 8. Moving or speaking so slowly that other people could have noticed. Or the opposite - being so fidgety or restless that you have been moving around a lot more than usual: not at all 9. Thoughts that you would be better off or of hurting yourself in some way: not at all Total score: 0 Depression Screening Interpretation: Negative Depression Screening Done: Yes 88123 - PHQ-9 Billing: Yes Source: Developed by Drs. Moisés Pratt, Amanda Peoples, Alirio Molina and colleagues, with an educational presley from [employer]. Thrive Questionnaire Date Thrive assessed: 06/24/23 AUDIT C Alcohol Use Questionnaire (AUDIT-C) 1. How often do you have a drink containing alcohol?: Monthly or less (social ) 2. How many drinks containing alcohol do you have on a typical day when you are drinking?: 1 or 2 3. How often do you have six or more drinks on one occasion?: Never Total Score: 1 Score Reviewed/Action Taken: No NICOLASA-7 AMB Questionnaire NICOLASA-7 Date NICOLASA - 7 assessed: 06/24/23 Source: Developed by Drs. Moisés Pratt, Amanda Peoples, Alirio Molina and colleagues, with an educational presley from [employer]. Physical exam (Primary Care) Vital Signs: Oxygen Delivery Method Room Air 03/22/24 14:12 Tobacco/Smoking Status: Tobacco use Status Tobacco use date assessed 07/13/23 07/13/23 16:23 Patient Tobacco Use Status Former Tobacco user 07/13/23 16:23 Tobacco use type Cigarette 07/13/23 16:23 e-Cigarette/Vaping Use Never Used 07/13/23 16:23 Depression Screening Interpretation: Negative Thrive Assessment: Date of Thrive Assessment Date Thrive assessed 06/24/23 07/13/23 16:23 Const General: alert; No acute distress Eyes Conjunctivae: conjunctivae normal Resp Auscultation: clear to auscultation bilaterally Cardio Rate: regular rate Rhythm: regular rhythm GI Other: no masses noted but epigastric painlocation , no rebound, no guarding Inspection: Yes normal to inspection Extrem General: Yes normal to inspection and No edema Coding Level of Care Code Est Pt Level 4 (86773) Diagnoses Seizure disorder G40.909 Mild intermittent asthma without complication J45.20 Asthma complication type: uncomplicated Asthma persistence: intermittent Asthma severity: mild Generalized anxiety disorder F41.1 Hypercholesterolemia E78.00 Primary insomnia F51.01 Insomnia type: primary Breast cancer screening by mammogram Z12.31 Gastroesophageal reflux disease without esophagitis K21.9 Esophagitis presence: without esophagitis Epigastric abdominal pain R10.13 Menopausal hot flushes N95.1 Additional Codes PHQ-9 - 23812 - PHQ-9 Billing: Yes ([id number]) Assessment & Plan Assessment & Plan (1) Seizure disorder: Comment: last sz 11/2022 Code(s): G40.909 - Epilepsy, unspecified, not intractable, without status epilepticus Category: Medical Plan: Occurred only because of the Wellbutrin. Patient has followed up with Neurology also. (2) Asthma: Code(s): J45.909 - Unspecified asthma, uncomplicated Category: Medical Qualifiers: Asthma complication type: uncomplicated Asthma persistence: intermittent Asthma severity: mild Qualified Code(s): J45.20 - Mild intermittent asthma, uncomplicated Plan: Continue with albuterol inhaler as needed. (3) Generalized anxiety disorder: Comment: Declined any referral for counseling Code(s): F41.1 - Generalized anxiety disorder Category: Medical Plan: Continue with the hydroxyzine and buspirone. (4) Hypercholesterolemia: Code(s): E78.00 - Pure hypercholesterolemia, unspecified Category: Medical Plan: Avoid fried foods, chicken skin, eggs, butter margarine, pastries and meat. Be it pork or beef they have a lot of cholesterol LDL goal of less than 130 and triglyceride of less than 150 (5) Insomnia: Code(s): G47.00 - Insomnia, unspecified Category: Medical Qualifiers: Insomnia type: primary Qualified Code(s): F51.01 - Primary insomnia Plan: Continue with zolpidem as needed. (6) Breast cancer screening by mammogram: Code(s): Z12.31 - Encounter for screening mammogram for malignant neoplasm of breast Category: Medical (7) GERD (gastroesophageal reflux disease): Comment: She denies acid reflux taking any PPIs or H2 deven Appetite is good Code(s): K21.9 - Gastro-esophageal reflux disease without esophagitis Category: Medical Qualifiers: Esophagitis presence: without esophagitis Qualified Code(s): K21.9 - Gastro-esophageal reflux disease without esophagitis (8) Epigastric abdominal pain: Code(s): R10.13 - Epigastric pain Category: Medical (9) Menopausal hot flushes: Code(s): N95.1 - Menopausal and female climacteric states Category: Medical Plan: prescribed med to try gabapentin Plan - For nausea and vomiting, prescribe medication to reduce gastric acid and manage suspected GERD symptoms. - Obtain blood work, including liver and kidney function tests, to rule out any systemic causes of her symptoms. - Order an ultrasound to evaluate the gallbladder, pancreas, and kidneys. - Discuss menopausal symptoms management and trial a non-hormonal medication, Gabapentin, to address hot flashes and aid sleep disturbances. - Reinforce dietary modifications to reduce gastric irritation, advising avoidance of spicy foods, tomatoes, and caffeinated beverages. - Plan referral for a mammogram as part of routine screening. - Advise retesting cholesterol levels to assess current status for hyperlipidemia management. Orders: Orders MM tomosynthesis screening BI Today Z12.31 - Encounter for screening mammogram for malignant neoplasm of breast [place] upper GI series Today K21.9 - Gastro-esophageal reflux disease without esophagitis, R13.10 - Dysphagia, unspecified US abdomen complete Today R10.13 - Epigastric pain, R79.89 - Other specified abnormal findings of blood chemistry Medications: New cholecalciferol (vitamin D3) 1,250 mcg PO QWEEK 14 caps 0RF Z12.31 - Encounter for screening mammogram for malignant neoplasm of breast gabapentin 100 mg PO BEDTIME 30 caps 2RF N95.1 - Menopausal and female climacteric states omeprazole 20 mg PO DAILY 30 caps 0RF K21.9 - Gastro-esophageal reflux disease without esophagitis
--- OUTSIDE RECORDS SUMMARY | 2024-03-22 14:12 | XMS_ITS ---
Author Name Jeffrey Bailey Address [address] [place] [address] Organization [facility] Address [address] [place] [address] Care Team Providers Care Greenhouse Manager Name Role Phone Jeffrey Bailey Unavailable [phone] PROBLEMS Unknown Problems ALLERGIES No Information ENCOUNTERS Encounter Location Date Diagnosis [address] [address] Jun, Encounter for immunization Z23 [address] [address] May, Encounter for immunization Z23 IMMUNIZATIONS Vaccine Route Administration Date Status MODERNA (SARSCOV2 Vaccine) IM Intramuscular June 21, 2020 Administered MODERNA (SARSCOV2 Vaccine) IM Intramuscular May 24 Administered SOCIAL HISTORY Never Assessed REASON FOR REFERRAL FUNCTIONAL STATUS PLAN OF CARE VITAL SIGNS MEDICATIONS Unknown Medications PROCEDURES Procedure Date Ordered Result Body Site IMM ADMN SARSCOV2 1ST Dose - Moderna May 24, 2020 IMM ADMN SARSCOV2 2ND Dose - Moderna June 21, 2020 SARSCOV2 Vaccine 100 MCG/0.5 ML IM USE - Moderna May 072020 SARSCOV2 Vaccine 100 MCG/0.5 ML IM USE - Moderna June 21, 2020 RESULTS No Results REASON FOR VISIT MODERNA #2, moderna #1 Insurance Providers Health Insurance Type Health Plan Insurance Address Health Plan Insurance Phone Health Plan Insurance Name Health Plan Coverage Dates Member ID Patient Relationship to Subscriber Patient Address Patient Phone Patient Name Patient Date of Subscriber ID Subscriber Name Subscriber Date of Group No Cign[employer] for [facility] [address] Nargis BAUGH [id number] Cign[employer] for [facility] Rosa Matos [id number]
--- OUTSIDE RECORDS SUMMARY | 2024-03-22 14:12 | XMS_ITS ---
Author Name [facility] Organization Unknown Results Test Name/Text Value Interpretation Date Range Source BILIRUB SERPL [facility] 0.4mg/dL Normal [id number] 0.3 - 1 [facility] BILIRUB DIRECT SERPL [facility] 0mg/dL Normal [id number] 0 - 0.2 [facility] CREAT SERPL [facility] 0.8mg/dL Normal [id number] 0.5 - 1 [facility] SODIUM SERPL [facility] 140mmol/L Normal [id number] 135 - 145 [facility] GLUCOSE SERPL [facility] 85mg/dL Normal [id number] 70 - 199 [facility] Glomerular filtration rate/1.73 sq M. predicted 89 Normal [id number] 60 - [facility] CHLORIDE SERPL [facility] 104mmol/L Normal [id number] 98 - 107 [facility] HCO3 SER SCNC 29mmol/L Normal [id number] 24 - 32 [facility] POTASSIUM SERPL [facility] 4.3mmol/L Normal [id number] 3.5 - 5.1 [facility] ANION GAP SERPL [facility] 7mmol/L Normal [id number] 5 - 14 [facility] BUN SERPL [facility] 10mg/dL Normal [id number] 7 - 17 [facility] CALCIUM SERPL [facility] 9.7mg/dL Normal [id number] 8.4 - 10 .2 [facility] LIPASE SERPL [facility] 29U/L Normal [id number] 11 - 82 [facility] AMYLASE SERPL [facility] 34U/L Normal [id number] 29 - 103 [facility] ALP SERPL-CCNC 75U/L Normal [id number] 34 - 104 [facility] AST SERPL [facility] 18U/L Normal [id number] 5 - 40 [facility] LDH SERPL L TO P [facility] 211U/L Normal [id number] 125 - 220 [facility] ALT SERPL [facility] 13U/L Normal [id number] 7 - 52 [facility] DIFFERENTIAL TYPE AUTOMATED Normal [id number] [facility] NEUTROPHILS NFR BLD AUTO 40.1% Below low normal [id number] 44 - 74 [facility] BASOPHILS NFR BLD AUTO 0.8% Normal [id number] 0 - 2 [facility] MONOCYTES NFR BLD AUTO 5.9% Normal [id number] 2 - 12 [facility] HCT VFR BLD AUTO 39.3% Normal [id number] 37 - 47 [facility] MONOCYTES NO. BLD AUTO 0.5K/uL Normal [id number] 0 - 0.8 [facility] RDW RBC AUTO RTO 13.7% Normal [id number] 12.1 - 16. 2 [facility] PLATELET NO. BLD AUTO 330K/uL Normal [id number] 150 - 450 [facility] EOSINOPHIL NO. BLD AUTO 1.7K/uL Above high normal [id number] 0 - 0.5 [facility] RBC NO. BLD AUTO 4.26M/uL Normal [id number] 4.2 - 5.4 [facility] MCH RBC QN AUTO 31.5pg Normal [id number] 25 - 33 C [facility] MCHC RBC AUTO MCNC 34.1g/dL Normal [id number] 32 - 36 [facility] HGB BLD [facility] 13.4g/dL Normal [id number] 12.5 - 16 [facility] BASOPHILS IN BLOOD BY AUTOMATED COUNT 0.1K/uL Normal [id number] 0 - 0.2 [facility] WBC NO. BLD AUTO 8K/uL Normal [id number] 4 - 10.5 [facility] EOSINOPHIL NFR BLD AUTO 21.3% Above high normal [id number] 0 - 6 [facility] LYMPHOCYTES NFR BLD AUTO 31.9% Normal [id number] 20 - 48 [facility] MCV RBC AUTO 92.3fL Normal [id number] 78 - 100 [facility] NEUTROPHILS NO. BLD AUTO 3.2K/uL Normal [id number] 1.8 - 7.8 [facility] LYMPHOCYTES NO. BLD AUTO 2.6K/uL Normal [id number] 1 - 3.2 [facility] PMV BLD AUTO 7.8fL Normal [id number] 7.4 - 11.4 [facility] HCV IGG SER QL EIA NEGATIVE Normal [id number] - [facility] Hgb A1c MFr Bld HPLC 5% Normal [id number] - 5.7 [facility] TSH SerPl DL<=0.005 mIU/L-aCnc 2.5uIU/mL Normal [id number] 0.45 - 5.33 [facility] Glucose Ur Ql Strip.auto NEGATIVE Normal [id number] - [facility] Prot Ur Ql Strip.auto NEGATIVE Normal [id number] - [facility] Nitrite Ur Ql Strip.auto NEGATIVE Normal [id number] - [facility] Hgb Ur Ql Strip.auto NEGATIVE Normal [id number] - [facility] Leukocyte esterase Ur Ql Strip.auto NEGATIVE Normal [id number] - [facility] Clarity Ur Refract.auto SLIGHTLY CLOUDY Normal [id number] [facility] Ketones Ur Ql Strip.auto NEGATIVE Normal [id number] - [facility] pH Ur Strip.auto 6 Normal [id number] 4.5 - 8 [facility] Sp Gr Ur Strip.auto 1.019 Normal [id number] 1.005 - 1.03 [facility] CREAT SERPL MCNC 0.8mg/dL Normal [id number] 0.5 - 1 [facility] BILIRUB SERPL MCNC 0.7mg/dL Normal [id number] 0.3 - 1 [facility] AST SERPL [facility] 15U/L Normal [id number] 5 - 40 [facility] Glomerular filtration rate/1.73 sq M. predicted 89 Normal [id number] 60 - [facility] HCO3 SER SCNC 29mmol/L Normal [id number] 24 - 32 [facility] POTASSIUM SERPL SCNC 4mmol/L Normal [id number] 3.5 - 5.1 [facility] ANION GAP SERPL SCNC 10mmol/L Normal [id number] 5 - 14 [facility] PROT SERPL MCNC 7.3g/dL Normal [id number] 6.4 - 8.5 C [facility] CALCIUM SERPL MCNC 9.8mg/dL Normal [id number] 8.4 - 10 .2 [facility] ALP SERPL-CCNC 61U/L Normal [id number] 34 - 104 [facility] SODIUM SERPL SCNC 141mmol/L Normal [id number] 135 - 145 [facility] GLUCOSE SERPL MCNC 78mg/dL Normal [id number] 70 - 199 [facility] ALBUMIN SERPL BCG MCNC 4.8g/dL Normal [id number] 3.5 - 5 [facility] CHLORIDE SERPL SCNC 102mmol/L Normal [id number] 98 - 107 [facility] ALT SERPL [facility] 14U/L Normal [id number] 7 - 52 [facility] BUN SERPL [facility]NC 17mg/dL Normal [id number] 7 - 17 [facility] PT TIME PPP 11sec Normal [id number] 10.5 - 13.3 [facility] INR PPP 0.9 Normal [id number] 0.8 - 1.1 [facility] APTT TIME PPP 34sec Normal [id number] 25 - 37 [facility] DIFFERENTIAL TYPE AUTOMATED Normal [id number] [facility] NEUTROPHILS NFR BLD AUTO 45.3% Normal [id number] 44 - 74 [facility] BASOPHILS NFR BLD AUTO 0.7% Normal [id number] 0 - 2 [facility] MONOCYTES NFR BLD AUTO 5.8% Normal [id number] 2 - 12 [facility] HCT VFR BLD AUTO 38.2% Normal [id number] 37 - 47 [facility] MONOCYTES NO. BLD AUTO 0.3K/uL Normal [id number] 0 - 0.8 [facility] RDW RBC AUTO RTO 13.5% Normal [id number] 12.1 - 16. 2 [facility] PLATELET NO. BLD AUTO 337K/uL Normal [id number] 150 - 450 [facility] EOSINOPHIL NO. BLD AUTO 0.4K/uL Normal [id number] 0 - 0.5 [facility] RBC NO. BLD AUTO 4.08M/uL Below low normal [id number] 4.2 - 5.4 [facility] MCH RBC QN AUTO 32.3pg Normal [id number] 25 - 33 C [facility] MCHC RBC AUTO MCNC 34.4g/dL Normal [id number] 32 - 36 [facility] HGB BLD MCNC 13.2g/dL Normal [id number] 12.5 - 16 [facility] BASOPHILS IN BLOOD BY AUTOMATED COUNT 0K/uL Normal [id number] 0 - 0.2 [facility] WBC NO. BLD AUTO 4.9K/uL Normal [id number] 4 - 10.5 [facility] EOSINOPHIL NFR BLD AUTO 7.6% Above high normal [id number] 0 - 6 [facility] LYMPHOCYTES NFR BLD AUTO 40.6% Normal [id number] 20 - 48 [facility] MCV RBC AUTO 93.7fL Normal [id number] 78 - 100 [facility] NEUTROPHILS NO. BLD AUTO 2.2K/uL Normal [id number] 1.8 - 7.8 [facility] LYMPHOCYTES NO. BLD AUTO 2K/uL Normal [id number] 1 - 3.2 [facility] PMV BLD AUTO 8.1fL Normal [id number] 7.4 - 11.4 [facility] SPECIMEN SOURCE XXX [facility] Normal [id number] [facility] History of Medication Use Medication Directions Dispensed Refills Start Date End Date Stat polyethylene glycol (MiraLax) 17 GM/SCOOP powder Take 17 g by mouth 2 (two) times a day for 10 days, THEN 17 g daily for 30 days. 11/19/2023 active senna-docusate (PERICOLACE) 8.6-50 MG Take 2 tablets by mouth daily. 11/19/2023 active sodium chloride 0.9% bolus (NS) 1,000 mL 1,000 mL, Intravenous, at 1,000 mL/hr, Once, On 11/15/23 at 1130, For 1 dose 11/19/2023 completed iopamidol (ISOVUE-370) 76 % injection 85 mL 85 mL, Intravenous, IMG once as needed, contrast, Starting on 11/15/23 at 1433, For 1 dose, Radiology ContrastLot #: [id number] 11/19/2023 completed No known medications No known medications 07/11/2023 act claudine busPIRoneTake (oral)[id number] No frequency recordedoralNo set duration recordedNo set duration amount codoldrasadamj6kd 03/28/2023 active Problems Problem Status Onset Date Problem Type Date of Resolution Source Constipation, acute active 2023-03-26 ProblemAct [facility] Anxiety disorder, unspecified active ProblemAct [facility] Constipation active EncounterDiagnosisAct [facility]
== END 2024-03-22 14:41 | disposition home or self-care (01) ==
PROVIDERS: PCP Internal Medicine; Visit Provider Internal Medicine
DX: G40.909 Epilepsy, unspecified, not intractable, without status epilepticus (principal); J45.20 Mild intermittent asthma, uncomplicated; F41.1 Generalized anxiety disorder; E78.00 Pure hypercholesterolemia, unspecified; F51.01 Primary insomnia; Z12.31 Encounter for screening mammogram for malignant neoplasm of breast; K21.9 Gastro-esophageal reflux disease without esophagitis; R10.13 Epigastric pain; N95.1 Menopausal and female climacteric states

== ENCOUNTER → 2024-03-22 14:06 | Outpatient (BNVA) | payer OTHER, SELFPAY | PROVIDERS: PCP Internal Medicine; Visit Provider Internal Medicine | DX: G40.909 Epilepsy, unspecified, not intractable, without status epilepticus (principal); J45.20 Mild intermittent asthma, uncomplicated; F41.1 Generalized anxiety disorder; E78.00 Pure hypercholesterolemia, unspecified; F51.01 Primary insomnia; K21.9 Gastro-esophageal reflux disease without esophagitis; R10.13 Epigastric pain; N95.1 Menopausal and female climacteric states; Z79.899 Other long term (current) drug therapy | CPT/HCPCS: 96127 ==

== ENCOUNTER 2024-03-24 08:43 | Outpatient (REF) | payer OTHER, SELFPAY ==
[2024-03-24 09:03] LABS: MANUAL DIFF FLAG NO
--- OUTSIDE RECORDS SUMMARY | 2024-03-24 09:05 | XMS_ITS ---
Author Name Jeffrey Bailey Address [address] [place] [address] Organization [facility] Address [address] [place] [address] Care Team Providers Care Insurance Claims Analyst Name Role Phone Jeffrey Bailey Unavailable [phone] PROBLEMS Unknown Problems ALLERGIES No Information ENCOUNTERS Encounter Location Date Diagnosis [address] [address] Jun, Encounter for immunization Z23 [address] [address] May, Encounter for immunization Z23 IMMUNIZATIONS Vaccine [...] Subscriber Date of Group No Cigna for [facility] [id number] Nargis BAUGH [id number] Cigna for [facility] Rosa Matos [id number]
[2024-03-24 09:52] LABS: Basophils Absolute Auto 0.1 X10*3/uL (0.0-0.2); Basophils Percent Auto 0.7 % (0-2); Eosinophils Absolute Auto 0.6 X10*3/uL (0.0-0.4); Eosinophils Percent Auto 8.7 % (0-4); Hematocrit 39.1 % (37.0-47.0); Hemoglobin 13.7 g/dl (12.0-16.0); Imm Gran Abs Auto 0.01 X10*3/uL (0.00-0.03); Imm Gran Pct Auto 0.1 % (0.0-0.4); Lymphocytes Absolute Auto 2.8 X10*3/uL (1.2-4.9); Lymphocytes Percent Auto 37.5 % (20-40); Mean Corpuscular Hemoglobin 31.2 pg (27.0-33.0); Mean Corpuscular Volume 89.1 fL (80.0-98.0); Mean Platelet Volume 9.2 fL (9.4-12.3); Monocytes Absolute Auto 0.5 X10*3/uL (0.1-1.2); Monocytes Percent Auto 6.2 % (2-11); Neutrophils Absolute Auto 3.5 x10*3/uL (2.0-8.3); Neutrophils Percent Auto 46.8 % (45-73); Platelet Count 346 X10*3/uL (160-400); Red Blood Count 4.39 X10*6/uL (4.20-5.50); Red Cell Distribution Width 12.5 % (11.0-16.0); White Blood Count 7.4 X10*3/uL (4.8-10.8)
[2024-03-24 10:49] LABS: Alanine Aminotransferase 24 U/L (0-31); Albumin Level 4.6 g/dL (3.5-5.0); Alkaline Phosphatase 85 U/L (39-117); Anion Gap 11 (12-20); Aspartate Amino Transferase 20 U/L (5-31); Bilirubin Total 0.3 mg/dL (0.0-1.0); Blood Urea Nitrogen 17 mg/dL (9-16); Calcium 9.6 mg/dL (8.4-10.2); Carbon Dioxide 29 mmol/L (22-29); Chloride 108 mmol/L (96-108); Cholesterol 207 mg/dL (<200); Estimated Glomerular Filt Rate > 60; Glucose Random 85 mg/dL (60-115); HDL Cholesterol 53 mg/dL (>40); LDL Cholesterol Calculated 140 mg/dL (<100); Potassium 4.5 mmol/L (3.3-5.1); Sodium 143 mmol/L (135-145); Total Protein 7.9 g/dL (6.5-8.0); Triglycerides 71 mg/dL (<150)
[2024-03-24 11:06] LABS: Free T4 (Free Thyroxine) 1.04 ng/dL (0.71-1.85); Vitamin D 25-OH Total 119.1 ng/mL (>30)
[2024-03-24 11:11] LABS: Folate 13.8 ng/mL (> or = 4.0); Vitamin B12 1179 pg/mL (200-900)
== END 2024-03-24 08:44 | disposition home or self-care (01) ==
LOC: HO.LAB 08:43
PROVIDERS: PCP Internal Medicine; Visit Provider Internal Medicine
DX: E78.00 Pure hypercholesterolemia, unspecified (principal); R79.89 Other specified abnormal findings of blood chemistry
CPT/HCPCS: 36415; 80053; 80061; 82306; 82607; 82746; 84439; 84443; 85025

== ENCOUNTER 2024-04-29 08:04 | Outpatient (REF) | payer OTHER, SELFPAY ==
--- NOTE | ~2024-04-29 | US_ITS ---
CLINICAL HISTORY: R79.89 - Other specified abnormal findings of blood chemistry US abdomen complete Comparison: None Findings: The visualized pancreas is normal. The aorta and inferior vena cava are normal caliber. The liver is normal in size and echotexture. There is no intrahepatic bile duct dilatation. The common duct is 5.0 mm in diameter. There is a 2 mm follow-up versus sludge ball. The gallbladder is otherwise normal. There is no sonographic Hu sign. The main portal vein is antegrade. The right kidney is 10.5 cm in length. The left kidney is 10.8 cm in length. The spleen is normal. No ascites. No periumbilical hernia identified. IMPRESSION: 1. Probably incidental 2 mm gallbladder polyp. Otherwise unremarkable exam This document has been electronically signed by: Tavo Frazier MD on 04/30/2024 09:32:34
== END 2024-04-29 08:05 | disposition home or self-care (01) ==
LOC: HO.US 08:04
PROVIDERS: PCP Internal Medicine; Visit Provider Internal Medicine
DX: R10.13 Epigastric pain (principal); R79.89 Other specified abnormal findings of blood chemistry
CPT/HCPCS: 76700

== ENCOUNTER → 2024-04-29 08:04 | Outpatient (BNV) | payer OTHER, SELFPAY | PROVIDERS: PCP Internal Medicine; Visit Provider Specialist | DX: K82.4 Cholesterolosis of gallbladder (principal) | CPT/HCPCS: 76700 ==

== ENCOUNTER → 2024-06-03 07:45 | Outpatient (BNV) | payer OTHER, SELFPAY | PROVIDERS: PCP Internal Medicine; Visit Provider Internal Medicine | DX: Z12.31 Encounter for screening mammogram for malignant neoplasm of breast (principal) | CPT/HCPCS: 77063; 77067 ==

== ENCOUNTER 2024-06-03 07:52 | Outpatient (REF) | payer OTHER, SELFPAY ==
--- NOTE | ~2024-06-03 | MM_ITS ---
EXAMINATION: MM SCREENING DIGITAL BREAST TOMOSYNTHESIS, BILATERAL CLINICAL INFORMATION: Screening. Asymptomatic. COMPARISON: Mammography: Comparison is made with relevant avialable priors. TECHNIQUE: Digital mammography is performed in craniocaudal and mediolateral oblique views along with computer-aided detection (CAD). Digital breast tomosynthesis is performed in implant-displaced craniocaudal and implant-displaced mediolateral oblique views along with computer-aided detection (CAD). FINDINGS: The breasts are heterogeneously dense, which may obscure small masses (ACR BI-RADS breast composition Category c). Bilateral retropectoral normal-appearing silicone implants. There are no significant masses, abnormal calcifications, or other abnormalities. MM/MM tomosynthesis screen imp BI IMPRESSION: There are no significant changes from prior study. ASSESSMENT: BI-RADS BI-RADS 2 - Benign Findings RECOMMENDATION: Routine annual mammography screening. 1 year F/U This patient's information was entered into a reminder system with a target due date for their next mammogram. Electronically signed by: Jane West DO 06/06/2024 03:28 PM MIK
--- OUTSIDE RECORDS SUMMARY | 2024-06-03 07:58 | XMS_ITS ---
Author Organization [facility] Address [address] [place] [id number] Care Team Providers Care Business Transformation Analyst Name Role Phone HARDEEP BAILEY M.D. 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 :1970???Age:53 Y???Sex:Female D ate:04/04/2024 Address:[address] [place], [place] [id number] Pcp:HARDEEP BAILEY M.D. Subjective: * Chief Complaints: * ???1. Annual UKE OPERATOR Physical. * Medical History:?Other asthm a, Other specified abnormal uterine and vaginal bleeding, Epilepsy, unspecified, intractable, without status epilepticus, Unspecified menopausal and perimenopausal disorder. 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 Control:?none.?Colonoscopy?Scheduled Apr 2023.? * OB History:?Total pregnancies?4.?Total living children?2.?NVD?2.?Miscarriage(s)?2.? Objective: * Vitals:? Assessment: Plan: * Treatment: * Images: Billing Information: * Visit Code:? * Procedure Codes:? * Electronic signature of Ezra Osei MD on 06/03/2024 at 07:58 AM EST Sign off status: Pending * Appointment Provider:?Billie Osei M.D. Date:?04/04/2024 Generated for Dmitry armenta/Jamil/Evangelinaitting on:?06/03/2024 07:58 AM EST
--- OUTSIDE RECORDS SUMMARY | 2024-06-03 07:58 | XMS_ITS | Patient Health Record ---
Author Organization [facility] Address [address] [facility] [address] [place] [address] Care Team Providers Care Cause Analyst Name Role Phone HARDEEP BAILEY M.D. Primary Care Provider Billie Chua Unavailable [phone] Allergies No Known Allergies Reason For Referral No Information Medications Medication SIG (Take, Route, Frequency, Duration) Notes Start Date End Date Status Vitamin D3 25 MCG (1000 UT) 1 capsule Orally Once a day for 30 day(s) Active ProAir HFA 108 (90 Base) MCG/ACT USE 2 PUFFS BY MOUTH 4 TIMES A DAY NEEDED FOR 30 DAYS Inhalation for 30 PRN Active Aygestin 5 MG 1 tablet Orally EDGAR Y FOR 10 DAYS Q 3 MONTHS for 90 days 04/01/2023 Active Zolpidem Tartrate 5 MG (Schedule IV Drug ) TAKE 1 TABLET BY MOUTH AT BEDTIME NEEDED FOR INSOMNIA Oral for 30 PRN Active Multi-Vitamin - 1 tablet Orally Once a day for 30 day(s) Active busPIRone HCl 15 MG 1 tablet Orally Daily Active Social History Tobacco Use: Social History Observation Description Date Details (start date - stop date) Former Smoker NA - NA Tobacco Use/Smoking Question Answer Notes Are you a former smoker How long has it been since you last smoked? 1-5 years Alcohol Screen (Audit-C) Question Answer Notes Did you have a drink contain ing alcohol in the past year? Yes How often did you have a dri nk containing alcohol in the past year? 2 to 3 times a week (3 points) How many drinks did you have on a typical day when you were drinking in the past year? 1 or 2 drinks (0 point) Points 3 Interpretation Positive Problems Problem Type SNOMED Code ICD Code Onset Dates Problem Status W/U Status Risk Notes Problem Epilepsy, unspecified, intractable, without status epilepticus (G40.919) Active confirmed Problem Unspecified menopausal and perimenopausal disorder (N95.9) Active confirmed Encounters Encounter Location Date Provider [facility] [address] [place] [address] 04/04/2024 Billie Osei [facility] [place] [address] [address] 03/26/2024 Billie Osei Plan Of Treatment Pending Test Test Name Order Date Urinalysis 04/01/2023 MM Digital Mammo Screening 07/17/2015 MM Digital Mammo Screening 03/12/2021 MM Digital Mammo Screening 03/25/2022 MM Digital Mammo Screening 04/01/2023 Insurance Providers Payer Name Payer Address Payer Phone Subscriber Number Group Number Insured Name Patient Relationship to Insured Coverage Start Date Coverage End Date [facility] [id number] [facility] [address] [id number] ELIZABETH CUEVA Spouse - patient is the spouse of the insured Medical (General) History Medical History History ICD Code Other asthma J45.998 Other specified abnormal uterine and vag inal bleeding N93.8 Epilepsy, unspecified, intractable, with out status epilepticus G40.919 Unspecified menopausal and perimenopausa l disorder N95.9 Surgical History Surgery Date(Month/Year) Breast Augmentation 08/2013 Abdominoplasty 09/2006 [facility]/EMB 2016 Hospitalization History Reason Date(Month/Year) 2 Vaginal Deliveries See Surgical Hx
--- OUTSIDE RECORDS SUMMARY | 2024-06-03 07:58 | XMS_ITS ---
Author Organization [email or web address] Address [address] [address] Care Team Providers Care Vinyl Dipper Name Role Phone HARDEEP BAILEY M.D. Primary Care Provider Billie Chua [phone] REASON FOR VISIT She is already being seen on 04/04/24 Encounters Encounter Location Date Provider Diagnosis [email or web address] [address] [address] 03/26/2024 Billie Osei Plan Of Treatment No Information Progress Notes * JACKLYN CUEVADOB:1970 (53 yo F)Acc No.[id number]:03/26/2024 Patient:?JACKLYN CUEVA :1970???Age:53 Y???Sex:Female Address:[address] [place] [address], [address] * true * Date:? Generated for Dmitry armenta/Jamil/eTransmitting on:?06/03/2024 07:58 AM EST
--- OUTSIDE RECORDS SUMMARY | 2024-06-03 07:58 | XMS_ITS ---
Author Organization [facility] Address [address] [place] [address] Care Team Providers Care Meal Grinder Tender Name Role Phone HARDEEP BAILEY M.D. Primary Care Provider Billie Chua [phone] REASON FOR VISIT MENOPAUSAL SYMPTOMS Encounters Encounter Location Date Provider Diagnosis [facility] [address] [address] 04/07/2024 Billie Osei Plan Of Treatment No Information Progress Notes * HAMMAD JACKLYNDOB:1970 (54 yo F)Acc No.[id number]:04/07/2024 PROGRESS NOTES Patient:?JACKLYN CUEVA Appointment Provider:?Billie esquivel M.D. :1970???Age:53 Y???Sex:Female D ate:04/07/2024 Address:[address] [place], [place] [id number] Pcp:HARDEEP BAILEY M.D. Subjective: * Chief Complaints: * ???1. MENOPAUSAL SYMPTOMS. * Medical History:?Other asthm a, Other specified abnormal uterine and vaginal bleeding, Epilepsy, unspecified, intractable, without status epilepticus, Unspecified menopausal and perimenopausal disorder. * Airbrush Painter History:?/ Para?4/2.?Sexual activity?currently sexually active.?Last Pap Smear:?03/12/21 NIL, NEG HPV, 07/17/2015 , neg, NEG HRHPV.?Mammogram:?05[place] [facility] [place], [place].?LMP and menses?Dec 2022, about 2-3 a year.? Control:?none.?Colonoscopy?Scheduled Apr 2023.? * OB History:?Total pregnancies?4.?Total living children?2.?NVD?2.?Miscarriage(s)?2.? Objective: * Vitals:? Assessment: Plan: * Treatment: * Images: Billing Information: * Visit Code:? * Procedure Codes:? * Electronic signature of Ezra Osei MD on 06/03/2024 at 07:57 AM EST Sign off status: Pending * Appointment Provider:?Billie Osei M.D. Date:?04/07/2024 Generated for Dmitry armenta/Jamil/Evangelinaitting on:?06/03/2024 07:57 AM EST
--- OUTSIDE RECORDS SUMMARY | 2024-06-03 07:58 | XMS_ITS | Clinical Summary ---
Author Organization [facility] Address [address] [place] [address] Phone Care Team Providers Care Chair Maker Name Role Phone Joan Molina Primary Care Provider [phone] Encounters Date Type Department Care Team Description 04/05/2024 6:32 AM EST - 04/05/2024 6:34 AM EST Emergency [facility] Emergency [address] [place] [phone] Discharge Disposition: Home or Self Care from Last 3 Months Social History Tobacco Use Types Packs/Day Years Used Date Smoking Tobacco: Never Smokeless Tobacco: Never Comments Unknown Sex and Gender Information Value Date Recorded Sex Assigned at Not on file Legal Sex Female 2:16 AM EST Gender Identity Not on file Sexual Orientation Not on file Obstetrics History Last Filed Vital Signs Vital Sign Reading Time Taken Comments Blood Pressure 132/75 04/04/2024 10:33 PM EST Pulse 107 04/04/2024 10:33 PM EST Temperature 34.6 ??C (94.2 ??F) 04/04/2024 10:[address] Respiratory Rate - - Oxygen Saturation 98% 04/04/2024 10:33 PM EST Inhaled Oxygen Concentration - - Weight 68.5 kg (151 lb) 04/04/2024 10:33 PM EST Height 165.1 cm (5' 5 ) 04/04/2024 10:33 PM EST Body Mass Index 25.13 04/04/2024 10:33 PM EST Plan of Treatment Health Maintenance Due Date Last Done Comments Breast Cancer Screening 1970 DTaP,Tdap,and Td Vaccines (1 - Tdap) 1991 Hepatitis B Vaccines (1 of 3 - 19+ 3-dose series) 1991 Cervical Cancer Screening: P ap Smear 1993 Cholesterol Screening (Lipid Panel) 03/09/2022 Colorectal Cancer Screening: Colonoscopy 03/09/2022 Depression Screening 03/09/2022 HIV Screening 03/09/2022 Social Influencers of Health Screening 03/09/2022 Pneumococcal Vaccine: 50+ Ye ars (1 of 1 - PCV) 2022 Zoster Vaccines (1 of 2) 2022 COVID-19 Vaccine (1 - 2023-2 5 season) 2023 Influenza Vaccine (#1) 2023 01/21/2020 Hepatitis C Screening Completed 07/04/2023 HIB Vaccines Aged Out No longer eligi ble based on patient's age to complete this topic HPV Vaccines Aged Out No longer eligi ble based on patient's age to complete this topic Hepatitis A Vaccines Aged Out No long er eligible based on patient's age to complete this topic IPV Vaccines Aged Out No longer eligi ble based on patient's age to complete this topic MMR Vaccines Aged Out No longer eligi ble based on patient's age to complete this topic Meningococcal ACWY Vaccine Aged Out N o longer eligible based on patient's age to complete this topic Meningococcal B Vacine Aged Out No lo nger eligible based on patient's age to complete this topic Pneumococcal Vaccine: Pediat rics (0 to 5 Years) and At-Risk Patients (6 to 64 Years) Aged Out No longer eligi ble based on patient's age to complete this topic RSV Immunization Patients Un [place] 20 months Aged Out No longer eligible b ased on patient's age to complete this topic Varicella Vaccines Aged Out No longer eligible based on patient's age to complete this topic Care Teams Chair Maker Relationship Specialty Start Date End Date Joan Molina [address] [place] [phone] PCP - General Internal Medicine 01/24/15
--- OUTSIDE RECORDS SUMMARY | 2024-06-03 07:59 | XMS_ITS | Clinical Summary ---
Author Organization [facility] Address [address] [place] [address] Care Team Providers Care Career Services Coordinator Name Role Phone Unavailable Primary Care Provider Unavailabl e Allergies No known active allergies Medications Medication Sig Dispensed Refills Start Date End Date Status senna-docusate (PERICOLACE) 8.6-50 MG Take 2 tablets by mouth daily. 60 tablet 0 11/15/2023 Active Active Problems No known active problems Social History Tobacco Use Types Packs/Day Years Used Date Smoking Tobacco: Never Smokeless Tobacco: Never Sex and Gender Information Value Date Recorded Sex Assigned at Not on file Gender Identity Not on file Sexual Orientation Not on file Job Start Date Occupation Industry Not on file Not on file Not on file Last Filed Vital Signs Vital Sign Reading Time Taken Comments Blood Pressure 113/78 11/15/2023 11:09 AM EDT Pulse 78 11/15/2023 11:09 AM EDT Temperature 36.4 ??C (97.5 ??F) 11/15/2023 11:09 AM E DT Respiratory Rate 18 11/15/2023 11:09 AM EDT Oxygen Saturation 96% 11/15/2023 11:09 AM EDT Inhaled Oxygen Concentration - - Weight 69.4 kg (153 lb) 11/15/2023 11:09 AM EDT Height 165.1 cm (5' 5 ) 11/15/2023 11:09 AM EDT Body Mass Index 25.46 11/15/2023 11:09 AM EDT Plan of Treatment Health Maintenance Due Date Last Done Comments Hepatitis B Vaccines (1 of 3 - 3-dose series) 1970 COVID-19 Vaccine (#1) 1972 Depression Screening 1984 Preventative Health Evaluation 1990 DTap / Tdap / Td (1 - Tdap) 1991 Cervical Cancer Screening (P ap Smear) 1993 Colon Cancer Screening (Colonoscopy) 2017 Breast Cancer Screening (Mammogram) 2022 Shingrix-Zoster Vaccine (1 of 2) 2022 Influenza Vaccine (#1) 2023 01/21/2020 Hepatitis C Screening Completed 07/04/2023 Pneumococcal Vaccine Aged Out No long er eligible based on patient's age to complete this topic RSV Ped < 20 months Aged Out No longe r eligible based on patient's age to complete this topic
== END 2024-06-03 07:53 | disposition home or self-care (01) ==
LOC: HO.MAMMO 07:52
PROVIDERS: PCP Internal Medicine; Visit Provider Internal Medicine
DX: Z12.31 Encounter for screening mammogram for malignant neoplasm of breast (principal)
CPT/HCPCS: 77063; 77067

== ENCOUNTER 2024-10-21 15:36 | Outpatient (AMB) | payer OTHER, SELFPAY ==
--- NOTE | 2024-10-21 11:42 | MHC.OFFVIS ---
Intake Visit Reasons: Abdominal pain Allergies bupropion (From Wellbutrin) Adverse Reaction (Intermediate, Verified 03/22/24 14:12) Seizure paroxetine Adverse Reaction (Mild, Verified 03/22/24 14:12) Stomach Upset sertraline (Zoloft) Adverse Reaction (Mild, Verified 03/22/24 14:12) Stomach Upset PFSH Medical History (Updated 04/30/24 @ 22:28 by Suzanne Weiss MD) GERD (gastroesophageal reflux disease) Colon cancer screening Leukopenia Lower back pain Tobacco abuse Seizure disorder Migraine Anxiety and depression Asthma Insomnia Surgical History Hx of breast augmentation History of abdominoplasty Family History Father Mouth cancer Mother No problems noted. Sister Seizure Bipolar disorder Maternal Grandmother Leukemia Breast cancer Paternal Grandmother Leukemia Cancer Maternal Uncle Liver cancer Heart attack Other Mental health problem Social History (Updated 06/24/23 @ 08:16 by Suzanne Weiss MD) Household Members Other:: - 2 children Housing: House Alcohol intake: current Alcohol intake frequency: holidays/special occasions only Comment: 1-2 x a month 2 drinks Patient Tobacco Use Status: Former Tobacco user Tobacco use type: Cigarette Years Smoked: quit 2020 e-Cigarette/Vaping Use: Never Used Second Hand Smoke Exposure: No service: No Current occupational status: employed Cognitive needs: No Hearing needs: No Vision needs: No Coding
--- OUTSIDE RECORDS SUMMARY | 2024-10-21 15:38 | XMS_ITS ---
[facility] Name [facility] Organization Unknown Results Test Name/Text Value Interpretation Date Range Source LIPASE 36.0 U/L Normal 10/13/2024 12 - 53 [facility] GFRE 76.0 Normal 10/13/2024 60 - [facility] AST (SGOT) 20.0 U/L Normal 10/13/2024 0 - 34 [facility] GLUCOSE 87.0 mg/dL Normal 10/13/2024 74 - 106 [facility] SODIUM 137.0 mmol/L Normal 10/13/2024 136 - 145 [facility] MH A/G RATIO 1.6 g/dL Normal 10/13/2024 [facility] ALKALINE PHOSPHATASE 91.0 U/L Normal 10/13/2024 45 - 129 [facility] PROTEIN, TOTAL 7.8 g/dL Normal 10/13/2024 5.7 - 8.2 [facility] CO2 26.0 mmol/L Normal 10/13/2024 20 - 31 [facility] ALBUMIN 4.8 g/dL Normal 10/13/2024 3.2 - 4.8 [facility] ALT (SGPT) 24.0 U/L Normal 10/13/2024 10 - 49 [facility] CHLORIDE 103.0 mmol/L Normal 10/13/2024 98 - 107 [facility] MH BUN 16.0 mg/dL Normal 10/13/2024 9 - 23 [facility] GLOBULIN 3.0 g/dL Normal 10/13/2024 2.2 - 3.5 [facility] POTASSIUM SERUM 4.2 mmol/L Normal 10/13/2024 3.5 - 5.1 CT [facility] BILIRUBIN,TOTAL 0.5 mg/dL Normal 10/13/2024 0.3 - 1.2 [facility] CREATININE 0.84 mg/dL Normal 10/13/2024 0.55 - 1.02 [facility] MMH BUN/CREAT.RATIO 19.0 Normal 10/13/2024 [facility] PATIENT FASTING? UNKNOWN Normal 10/13/2024 CT [facility] EOSINOPHILS 3.0 % Normal 10/13/2024 0 - 6 [facility] HCT 38.9 % Normal 10/13/2024 36 - 46 [facility] HGB 13.1 g/dL Normal 10/13/2024 12.1 - 15.7 [facility] H MONOCYTES 6.0 % Normal 10/13/2024 0 - 12 [facility] PLATELET COUNT 352.0 K/uL Normal 10/13/2024 150 - 480 [facility] MPV 9.0 fL Normal 10/13/2024 8 - 12 [facility] ABSOLUTE NUCLEATED RBC 0.0 K/uL Normal 10/13/2024 0 - 0.012 [facility] ABSOLUTE EOS 0.3 K/uL Normal 10/13/2024 0 - 0.7 [facility] IMMATURE GRANULOCYTES 0.0 % Normal 10/13/2024 0 - 0.45 [facility] MCHC 33.7 g/dL Normal 10/13/2024 31 - 36 [facility] ABSOLUTE MONOS 0.7 K/uL Normal 10/13/2024 0.2 - 1.5 [facility] RDW 13.2 % Normal 10/13/2024 11.1 - 13.3 [facility] MCH 31.0 PG Normal 10/13/2024 27 - 34 [facility] ABSOLUTE GRANULOCYTES 6.2 K/uL Normal 10/13/2024 2.2 - 7.3 [facility] ABSOLUTE IMMATURE GRANULOCYTES 0.0 K/uL Normal 10/13/2024 0 - 0.3 [facility] RBC 4.26 M/uL Normal 10/13/2024 4 - 5.4 [facility] GRANULOCYTES 57.0 % Normal 10/13/2024 23 - 78 [facility] MH LYMPHS 33.0 % Normal 10/13/2024 16 - 50 [facility] BASOPHILS 0.0 % Normal 10/13/2024 0 - 2 [facility] WBC 10.9 K/uL Above high normal 10/13/2024 3.7 - 10.3 [facility] NUCLEATED RBC 0.0 % Normal 10/13/2024 0 - 0.2 [facility] MMH ABSOLUTE LYMPHS 3.6 K/uL Normal 10/13/2024 1.5 - 4.9 [facility] MCV 91.0 fL Normal 10/13/2024 83 - 102 [facility] ABSOLUTE BASO 0.0 K/uL Normal 10/13/2024 0 - 0.2 [facility] MMH POTASSIUM SERUM 4.2 mmol/L Normal 04/11/2024 3.5 - 5.1 CT [facility] GLOBULIN 3.2 g/dL Normal 04/11/2024 2.2 - 3.5 [facility] ALBUMIN 4.5 g/dL Normal 04/11/2024 3.2 - 4.8 [facility] BUN 10.0 mg/dL Normal 04/11/2024 9 - 23 [facility] CO2 29.0 mmol/L Normal 04/11/2024 20 - 31 [facility] H BILIRUBIN,TOTAL 0.6 mg/dL Normal 04/11/2024 0.3 - 1.2 [facility] PROTEIN, TOTAL 7.7 g/dL Normal 04/11/2024 5.7 - 8.2 [facility] A/G RATIO 1.4 g/dL Normal 04/11/2024 [facility] BUN/CREAT.RATIO 11.0 Normal 04/11/2024 [facility] GLUCOSE 93.0 mg/dL Normal 04/11/2024 74 - 106 [facility] AST (SGOT) 16.0 U/L Normal 04/11/2024 0 - 34 [facility] CREATININE 0.91 mg/dL Normal 04/11/2024 0.55 - 1.02 [facility] MMH SODIUM 138.0 mmol/L Normal 04/11/2024 136 - 145 [facility] MH ALT (SGPT) 14.0 U/L Normal 04/11/2024 10 - 49 [facility] CHLORIDE 103.0 mmol/L Normal 04/11/2024 98 - 107 [facility] MH ALKALINE PHOSPHATASE 80.0 U/L Normal 04/11/2024 45 - 129 [facility] PATIENT FASTING? UNKNOWN Normal 04/11/2024 [facility] GFRE 69.0 Normal 04/11/2024 60 - [facility] LIPASE 33.0 U/L Normal 04/11/2024 12 - 53 [facility] ABSOLUTE GRANULOCYTES 3.4 K/uL Normal 04/11/2024 2.2 - 7.3 [facility] MCV 89.0 fL Normal 04/11/2024 83 - 102 [facility] WBC 6.2 K/uL Normal 04/11/2024 3.7 - 10.3 [facility] IMMATURE GRANULOCYTES 0.0 % Normal 04/11/2024 0 - 0.45 [facility] MCHC 35.2 g/dL Normal 04/11/2024 31 - 36 [facility] NUCLEATED RBC 0.0 % Normal 04/11/2024 0 - 0.2 [facility] MMH ABSOLUTE NUCLEATED RBC 0.0 K/uL Normal 04/11/2024 0 - 0.012 [facility] RBC 4.23 M/uL Normal 04/11/2024 4 - 5.4 [facility] ABSOLUTE MONOS 0.6 K/uL Normal 04/11/2024 0.2 - 1.5 [facility] PLATELET COUNT 328.0 K/uL Normal 04/11/2024 150 - 480 [facility] ABSOLUTE BASO 0.0 K/uL Normal 04/11/2024 0 - 0.2 [facility] MMH MCH 31.0 PG Normal 04/11/2024 27 - 34 [facility] MONOCYTES 9.0 % Normal 04/11/2024 0 - 12 [facility] ABSOLUTE EOS 0.4 K/uL Normal 04/11/2024 0 - 0.7 [facility] MH HGB 13.3 g/dL Normal 04/11/2024 12.1 - 15.7 [facility] HCT 37.8 % Normal 04/11/2024 36 - 46 [facility] GRANULOCYTES 55.0 % Normal 04/11/2024 23 - 78 [facility] MH RDW 12.7 % Normal 04/11/2024 11.1 - 13.3 [facility] BASOPHILS 0.0 % Normal 04/11/2024 0 - 2 [facility] LYMPHS 29.0 % Normal 04/11/2024 16 - 50 [facility] EOSINOPHILS 6.0 % Normal 04/11/2024 0 - 6 [facility] H ABSOLUTE IMMATURE GRANULOCYTES 0.0 K/uL Normal 04/11/2024 0 - 0.3 [facility] MPV 9.0 fL Normal 04/11/2024 8 - 12 [facility] ABSOLUTE LYMPHS 1.8 K/uL Normal 04/11/2024 1.5 - 4.9 [facility] WBC > 50 Above high normal 04/11/2024 0 - 0 [facility] RBC 0.0 /HPF Normal 04/11/2024 0 - 0 [facility] PRESENT Critically abnormal 04/11/2024 - [facility] BACTERIA 2+ Critically abnormal 04/11/2024 - [facility] EPI CELLS 2+ Normal 04/11/2024 [facility] COLOR Yellow Normal 04/11/2024 - [facility] LEUK. ESTERASE Moderate Critically abnormal 04/11/2024 - [facility] PH 6.0 Normal 04/11/2024 5 - 8 [facility] APPEARANCE Cloudy Normal 04/11/2024 - [facility] NITRITE Positive Critically abnormal 04/11/2024 - [facility] SPECIFIC GRAVITY 1.02 Normal 04/11/2024 1.005 - 1.03 [facility] GLUCOSE Negative Normal 04/11/2024 - [facility] BILIRUBIN Negative Normal 04/11/2024 - [facility] PROTEIN Trace Critically abnormal 04/11/2024 - [facility] BLOOD Negative Normal 04/11/2024 - [facility] KETONES Trace Critically abnormal 04/11/2024 - [facility] UROBILINOGEN 1.0 mg/dL Normal 04/11/2024 - [facility] GFRE 62.0 Normal 04/05/2024 60 - [facility] LIPASE 28.0 U/L Normal 04/05/2024 12 - 53 [facility] BUN/CREAT.RATIO 13.0 Normal 04/05/2024 [facility] POTASSIUM SERUM 4.0 mmol/L Normal 04/05/2024 3.5 - 5.1 CT [facility] A/G RATIO 1.6 g/dL Normal 04/05/2024 [facility] GLOBULIN 3.3 g/dL Normal 04/05/2024 2.2 - 3.5 [facility] CO2 25.0 mmol/L Normal 04/05/2024 20 - 31 [facility] H SODIUM 140.0 mmol/L Normal 04/05/2024 136 - 145 CT[facility] GH ALBUMIN 5.2 g/dL Above high normal 04/05/2024 3.2 - 4.8 C [facility] AST (SGOT) 21.0 U/L Normal 04/05/2024 0 - 34 [facility] GLUCOSE 133.0 mg/dL Above high normal 04/05/2024 74 - 106 [facility] BUN 13.0 mg/dL Normal 04/05/2024 9 - 23 CTPR PROTEIN, TOTAL 8.5 g/dL Above high normal 04/05/2024 5.7 - 8.2 CTPR ALKALINE PHOSPHATASE 93.0 U/L Normal 04/05/2024 45 - 129 [facility] CHLORIDE 102.0 mmol/L Normal 04/05/2024 98 - 107 [facility] ALT (SGPT) 17.0 U/L Normal 04/05/2024 10 - 49 CTPR BILIRUBIN,TOTAL 0.7 mg/dL Normal 04/05/2024 0.3 - 1.2 CTP R[facility] CREATININE 1.0 mg/dL Normal 04/05/2024 0.55 - 1.02 CTPR GH PATIENT FASTING? UNKNOWN Normal 04/05/2024 CT PM[facility] HCG, BETA QUANTITATIVE 3.0 mIU/mL Normal 04/05/2024 [facility] MCH 31.0 PG Normal 04/05/2024 27 - 34 [facility] BASOPHILS 0.0 % Normal 04/05/2024 0 - 2 CTPR PLATELET COUNT 374.0 K/uL Normal 04/05/2024 150 - 480 [facility]P R[facility] IMMATURE GRANULOCYTES 0.0 % Normal 04/05/2024 0 - 0.45 CTPR RDW 12.7 % Normal 04/05/2024 11.1 - 13.3 CTPRG H ABSOLUTE GRANULOCYTES 10.1 K/uL Above high normal 04/05/2024 2.2 - 7.3 [facility] MPV 9.0 fL Normal 04/05/2024 8 - 12 [facility] ABSOLUTE MONOS 0.6 K/uL Normal 04/05/2024 0.2 - 1.5 CTP [facility] ABSOLUTE BASO 0.0 K/uL Normal 04/05/2024 0 - [facility] 14.[facility] g/dL Normal 04/05/2024 12.1 - 15.7 [facility] H NUCLEATED RBC 0.0 % Normal 04/05/2024 0 - 0.2 [facility] ABSOLUTE LYMPHS 1.5 K/uL Normal 04/05/2024 1.5 - 4.9 CTP [facility] GRANULOCYTES 81.0 % Above high normal 04/05/2024 23 - 78 [facility] WBC 12.5 K/uL Above high normal 04/05/2024 3.7 - 10.3 [facility] ABSOLUTE NUCLEATED RBC 0.0 K/uL Normal 04/05/2024 0 - 0.012 [facility] RBC 4.82 M/uL Normal 04/05/2024 4 - 5.4 [facility] EOSINOPHILS 2.0 % Normal 04/05/2024 0 - 6 CT[facility]G H MCV 90.0 fL Normal 04/05/2024 83 - 102 CTPR LYMPHS 12.0 % Below low normal 04/05/2024 16 - 50 CT [facility] MONOCYTES 5.0 % Normal 04/05/2024 0 - 12 [facility] ABSOLUTE EOS 0.2 K/uL Normal 04/05/2024 0 - 0.7 CTPR ABSOLUTE IMMATURE GRANULOCYTES 0.1 K/uL Normal 04/05/2024 0 - 0.3 [facility] HCT 43.4 % Normal 04/05/2024 36 - 46 CTPR MCHC 34.1 g/dL Normal 04/05/2024 31 - 36 [facility] WBC NO. BLD AUTO 8.0 K/uL Normal 11/15/2023 4 - 10.5 CT [facility] BASOPHILS NFR BLD AUTO 0.8 % Normal 11/15/2023 0 - 2 [facility] MCV RBC AUTO 92.3 fL Normal 11/15/2023 78 - 100 CTTH[facility] RAN MONOCYTES NO. BLD AUTO 0.5 K/uL Normal 11/15/2023 0 - 0.8 [facility] NEUTROPHILS NFR BLD AUTO 40.1 % Below low normal 11/15/2023 44 - 74 [facility] LYMPHOCYTES NO. BLD AUTO 2.6 K/uL Normal 11/15/2023 1 - 3.2 [facility] EOSINOPHIL NO. BLD AUTO 1.7 K/uL Above high normal 11/15/2023 0 - 0.5 [facility] PMV BLD AUTO 7.8 fL Normal 11/15/2023 7.4 - 11.4 CTTHS CHELSEY BASOPHILS IN BLOOD BY AUTOMATED COUNT 0.1 K/uL Normal 11/15/2023 0 - 0.2 [facility] MCHC RBC AUTO MCNC 34.1 g/dL Normal 11/15/2023 32 - 36 [facility] LYMPHOCYTES NFR BLD AUTO 31.9 % Normal 11/15/2023 20 - 48 [facility] RBC NO. BLD AUTO 4.26 M/uL Normal 11/15/2023 4.2 - 5.4 CT [facility] MCH RBC QN AUTO 31.5 pg Normal 11/15/2023 25 - 33 CTT HSFRAN NEUTROPHILS NO. BLD AUTO 3.2 K/uL Normal 11/15/2023 1.8 - 7.8 [facility] MONOCYTES NFR BLD AUTO 5.9 % Normal 11/15/2023 2 - 12 [facility] EOSINOPHIL NFR BLD AUTO 21.3 % Above high normal 11/15/2023 0 - 6 [facility] HGB BLD MCNC 13.4 g/dL Normal 11/15/2023 12.5 - 16 CT[facility] RAN RDW RBC AUTO RTO 13.7 % Normal 11/15/2023 12.1 - 16.2 [facility] HCT VFR BLD AUTO 39.3 % Normal 11/15/2023 37 - 47 CT [facility] PLATELET NO. BLD AUTO 330.0 K/uL Normal 11/15/2023 150 - 450 [facility] DIFFERENTIAL TYPE AUTOMATED Normal 11/15/2023 C TTHS[facility]AN BILIRUB SERPL MCNC 0.4 mg/dL Normal 11/15/2023 0.3 - 1 [facility] BILIRUB DIRECT SERPL MCNC 0.0 mg/dL Normal 11/15/2023 0 - 0.2 [facility] CREAT SERPL MCNC 0.8 mg/dL Normal 11/15/2023 0.5 - 1 CT [facility] GLUCOSE SERPL MCNC 85.0 mg/dL Normal 11/15/2023 70 - 199 [facility] SODIUM SERPL SCNC 140.0 mmol/L Normal 11/15/2023 135 - 14 5 [facility] HCO3 SER SCNC 29.0 mmol/L Normal 11/15/2023 24 - 32 CTT HSFRAN CHLORIDE SERPL SCNC 104.0 mmol/L Normal 11/15/2023 98 - 1 07 [facility] POTASSIUM SERPL SCNC 4.3 mmol/L Normal 11/15/2023 3.5 - 5.1 [facility] CALCIUM SERPL MCNC 9.7 mg/dL Normal 11/15/2023 8.4 - 10.2 [facility] ANION GAP SERPL SCNC 7.0 mmol/L Normal 11/15/2023 5 - 14 [facility] BUN SERPL MCNC 10.0 mg/dL Normal 11/15/2023 7 - 17 CTT HSFRAN Glomerular filtration rate/1.73 sq M. predicted 89.0 Normal 11/15/2023 60 - [facility] ALT SERPL CCNC 13.0 U/L Normal 11/15/2023 7 - 52 CTTH SFRAN AST SERPL CCNC 18.0 U/L Normal 11/15/2023 5 - 40 CTTH SFRAN LDH SERPL L TO P CCNC 211.0 U/L Normal 11/15/2023 125 - 220 [facility] ALP SERPL-CCNC 75.0 U/L Normal 11/15/2023 34 - 104 CTTH SFRAN AMYLASE SERPL CCNC 34.0 U/L Normal 11/15/2023 29 - 103 [facility] LIPASE SERPL CCNC 29.0 U/L Normal 11/15/2023 11 - 82 C T[facility] MONOCYTES NFR BLD AUTO 5.8 % Normal 07/04/2023 2 - 12 [facility] BASOPHILS NFR BLD AUTO 0.7 % Normal 07/04/2023 0 - 2 [facility] LYMPHOCYTES NFR BLD AUTO 40.6 % Normal 07/04/2023 20 - 48 [facility] PLATELET NO. BLD AUTO 337.0 K/uL Normal 07/04/2023 150 - 450 [facility] MCHC RBC AUTO MCNC 34.4 g/dL Normal 07/04/2023 32 - 36 [facility] WBC NO. BLD AUTO 4.9 K/uL Normal 07/04/2023 4 - 10.5 CT [facility] MCV RBC AUTO 93.7 fL Normal 07/04/2023 78 - 100 CT[facility] MG EOSINOPHIL NO. BLD AUTO 0.4 K/uL Normal 07/04/2023 0 - 0.5 [facility] DIFFERENTIAL TYPE AUTOMATED Normal 07/04/2023 C [facility] NEUTROPHILS NFR BLD AUTO 45.3 % Normal 07/04/2023 44 - 74 [facility] RBC NO. BLD AUTO 4.08 M/uL Below low normal 07/04/2023 4.2 - 5.4 [facility] EOSINOPHIL NFR BLD AUTO 7.6 % Above high normal 07/04/2023 0 - 6 [facility] HGB BLD MCNC 13.2 g/dL Normal 07/04/2023 12.5 - 16 [facility] MG NEUTROPHILS NO. BLD AUTO 2.2 K/uL Normal 07/04/2023 1.8 - 7.8 [facility] RDW RBC AUTO RTO 13.5 % Normal 07/04/2023 12.1 - 16.2 [facility] BASOPHILS IN BLOOD BY AUTOMATED COUNT 0.0 K/uL Normal 07/04/2023 0 - 0.2 [facility] MONOCYTES NO. BLD AUTO 0.3 K/uL Normal 07/04/2023 0 - 0.8 [facility] MCH RBC QN AUTO 32.3 pg Normal 07/04/2023 25 - 33 CTT HNEMG LYMPHOCYTES NO. BLD AUTO 2.0 K/uL Normal 07/04/2023 1 - 3.2 [facility]G PMV BLD AUTO 8.1 fL Normal 07/04/2023 7.4 - 11.4 CTTHN EMG HCT VFR BLD AUTO 38.2 % Normal 07/04/2023 37 - 47 CT [facility] PT TIME PPP 11.0 sec Normal 07/04/2023 10.5 - 13.3 CT[facility]N EMG APTT TIME PPP 34.0 sec Normal 07/04/2023 25 - 37 [facility] EMG INR PPP 0.9 Normal 07/04/2023 0.8 - 1.1 [facility] TSH SerPl DL<=0.005 mIU/L-aCnc 2.5 uIU/mL Normal 07/04/2023 0.45 - 5.33 [facility] Sp Gr Ur Strip.auto 1.019 Normal 07/04/2023 1.005 - 1.03 [facility] Clarity Ur Refract.auto SLIGHTLY CLOUDY Normal 07/04/2023 [facility] Leukocyte esterase Ur Ql Strip.auto NEGATIVE Normal 07/04/2023 - [facility] pH Ur Strip.auto 6.0 Normal 07/04/2023 4.5 - 8 CT [facility] Hgb Ur Ql Strip.auto NEGATIVE Normal 07/04/2023 - [facility] Ketones Ur Ql Strip.auto NEGATIVE Normal 07/04/2023 - [facility] Glucose Ur Ql Strip.auto NEGATIVE Normal 07/04/2023 - [facility] Prot Ur Ql Strip.auto NEGATIVE Normal 07/04/2023 - [facility] Nitrite Ur Ql Strip.auto NEGATIVE Normal 07/04/2023 - [facility] SPECIMEN SOURCE XXX ucc Normal 07/04/2023 [facility] SODIUM SERPL SCNC 141.0 mmol/L Normal 07/04/2023 135 - 14 5 [facility] HCO3 SER SCNC 29.0 mmol/L Normal 07/04/2023 24 - 32 CTT HNEMG CHLORIDE SERPL SCNC 102.0 mmol/L Normal 07/04/2023 98 - 1 07 [facility] ALP SERPL-CCNC 61.0 U/L Normal 07/04/2023 34 - 104 CTTH NEMG BILIRUB SERPL MCNC 0.7 mg/dL Normal 07/04/2023 0.3 - 1 [facility] BUN SERPL MCNC 17.0 mg/dL Normal 07/04/2023 7 - 17 CTT HNEMG Glomerular filtration rate/1.73 sq M. predicted 89.0 Normal 07/04/2023 60 - [facility] POTASSIUM SERPL SCNC 4.0 mmol/L Normal 07/04/2023 3.5 - 5.1 [facility] ALBUMIN SERPL BCG MCNC 4.8 g/dL Normal 07/04/2023 3.5 - 5 [facility] GLUCOSE SERPL MCNC 78.0 mg/dL Normal 07/04/2023 70 - 199 [facility] CREAT SERPL MCNC 0.8 mg/dL Normal 07/04/2023 0.5 - 1 CT [facility] ALT SERPL CCNC 14.0 U/L Normal 07/04/2023 7 - 52 CTTH NEMG ANION GAP SERPL SCNC 10.0 mmol/L Normal 07/04/2023 5 - 14 [facility] AST SERPL CCNC 15.0 U/L Normal 07/04/2023 5 - 40 CT[facility] NEMG PROT SERPL MCNC 7.3 g/dL Normal 07/04/2023 6.4 - 8.5 CTT HNEMG CALCIUM SERPL MCNC 9.8 mg/dL Normal 07/04/2023 8.4 - 10.2 [facility] Hgb A1c MFr Bld HPLC 5.0 % Normal 07/04/2023 - 5.7 [facility] HCV IGG SER QL EIA NEGATIVE Normal 07/05/2023 - [facility] History of Medication Use Medication Directions Dispensed Refills Start Date End Date Stat polyethylene glycol (MiraLax) 17 GM/SCOOP powder Take 17 g by mouth 2 (two) times a day for 10 days, THEN 17 g daily for 30 days. 11/15/2023 12/26/2023 active sodium chloride 0.9% bolus (NS) 1,000 mL 1,000 mL, Intravenous, at 1,000 mL/hr, Once, On 11/15/23 at 1130, For 1 dose 11/15/2023 11/15/2023 completed No known medications No known medications active Problems Problem Status Onset Date Problem Type Date of Resolution Source Constipation active EncounterDiagnosisAct CTTHSFRAN Anxiety disorder, unspecified active ProblemAct [facility]_PHYSONE Constipation, acute active 2023-03-26 ProblemAct [facility]_PHYSONE Encounters Encounter Type Encounter Reason Primary Diagnosis Location Date Emergency ABD PAIN/NAUSEA ABD PAIN/NAUSEA [facility] 10/12/2024 Emergency ABDOMINAL PAIN ABDOMINAL PAIN [facility] 04/11/2024 Emergency abd pain Abdominal Pain [facility] 04/05/2024 Emergency VOMITING FOR THE LAST COUPLE OF HOURS VOMITING FOR THE LAST COUPLE OF HOURS [facility] 04/04/2024 Emergency Constipation, unspecified Constipation, unspecified [facility] 11/15/2023 Ambulatory [facility] 03/26/2023 Care Team Organization Name Specialty Phone Email Start Date End [facility] 04/17/2024 [facility] 04/11/2024 [facility] 04/10/2024 [facility] 04/06/2024 10/18/2024 [facility] 04/05/2024 [facility] 04/05/2024 [facility] 4 10/18/2024 [facility] NO PROVIDER Primary Care 04/26/2023 [facility] NO PROVIDER Primary Care 04/26/2023 09/15/2024 [facility] 023 09/15/2024 [facility] 023 03/26/2023
--- OUTSIDE RECORDS SUMMARY | 2024-10-21 15:38 | XMS_ITS | Clinical Summary ---
Author Organization [facility] Address [address] [place] [address] Care Team Providers Care Inspector Filters Name Role Phone Unavailable Primary Care Provider [...] [id number] 11/15/2023 11:09 AM EDT Temperature 36.4 C (97.5 F) 11/15/2023 11:09 AM EDT Respiratory Rate 18 11/15/2023 11:09 AM EDT [...] (1 of 2) 2022 Influenza Vaccine (#1) 2024 01/21/2020 Hepatitis C Screening Completed 07/04/2023 Pneumococcal Vaccine Aged Out No long er eligible based on patient's age to complete this topic RSV Ped < 20 months Aged Out No longe r eligible based on patient's age to complete this topic
--- NOTE | 2024-10-21 15:41 | MHC.OFFVIS ---
Vital Signs 10/21/24 15:42 Height 5 ft 5 in Weight 150 lb 2 oz BMI 25.0 BP 104/74 Blood Pressure Location Lt brachial Position Sitting Intake Visit Reasons: Abdominal pain President Financial Institution Required: No Accompanied by: Self / Same As Patient Allergies bupropion (From Wellbutrin) Adverse Reaction (Intermediate, Verified 10/21/24 15:47) Seizure paroxetine Adverse Reaction (Mild, Verified 10/21/24 15:47) Stomach Upset sertraline (Zoloft) Adverse Reaction (Mild, Verified 10/21/24 15:47) Stomach Upset Medication List - Last Reconciled 10/21/24 by Laura Pena PA-C albuterol sulfate 90 mcg/actuation 2 puffs PO QID PRN ascorbic acid (vitamin C) 1 g PO DAILY buspirone 5 mg PO BID cholecalciferol (vitamin D3) 1,250 mcg PO QWEEK cyanocobalamin (vitamin B-12) 1,000 mcg PO DAILY gabapentin 100 mg PO BEDTIME hydroxyzine HCl 25 mg PO BID PRN multivitamin 1 tab PO DAILY omeprazole 20 mg PO DAILY zolpidem (Ambien) 5 mg PO BEDTIME PRN HPI HPI Abdominal pain: Details: 54-year-old female with past medical history of insomnia, asthma, migraine, seizure disorder, generalized anxiety disorder, hypercholesterolemia, GERD last seen 03/2024 coming in for acute problem. In review of the notes, patient was seen in the ED 10/12/2024 for abdominal pain workup was negative patient was discharged to follow up with GI. Presenting with persistent abdominal pain and bloating. The abdominal pain began in February and has been persistent since then, leading to multiple emergency room visits without a definitive diagnosis. The pain is described as severe, affecting her ability to eat and sleep, and is associated with bloating and a palpable lump in the abdomen. Previous investigations included ultrasounds and CT scans, which showed gallbladder sludge but no other significant findings. The patient has a history of missed GI appointments and is scheduled to see a GI specialist in November. She has been prescribed Protonix and dicyclomine, which provided temporary relief. There is a family history of stomach cancer, contributing to her concern about the symptoms. The patient reports no recent constipation or diarrhea, and bowel movements do not alleviate the pain. [facility] Medical History GERD (gastroesophageal reflux disease) Colon cancer screening Leukopenia Lower back pain Tobacco abuse Seizure disorder Migraine Anxiety and depression Asthma Insomnia Surgical History Hx of breast augmentation History of abdominoplasty Family History Father Mouth cancer Mother No problems noted. Sister Seizure Bipolar disorder Maternal Grandmother Leukemia Breast cancer Paternal Grandmother Leukemia Cancer Maternal Uncle Liver cancer Heart attack Other Mental health problem Social History Household Members Other:: - 2 children Housing: House Alcohol intake: current Alcohol intake frequency: holidays/special occasions only Comment: 1-2 x a month 2 drinks Patient Tobacco Use Status: Former Tobacco user Tobacco use type: Cigarette Years Smoked: quit 2020 e-Cigarette/Vaping Use: Never Used Second Hand Smoke Exposure: No service: No Current occupational status: employed Cognitive needs: No Hearing needs: No Vision needs: No Review of Systems Const Denies body aches, Denies chills, Denies fever(s), Denies headache(s) and Denies poor appetite Eyes Reports no additional complaints ENT Denies dysphagia, Denies dizziness, Denies headache(s) and Denies odynophagia Card Denies chest pain, Denies syncope, Denies edema, Denies irregular heart rhythm, Denies lightheadedness and Denies dyspnea Resp Denies cough and Denies dyspnea GI Reports abdominal pain, Reports bloating, Denies constipation, Denies dysphagia, Denies diarrhea, Reports nausea, Denies odynophagia and Denies vomiting Reports no additional complaints Musc Reports no additional complaints and Denies abnormal gait Skin/Breast Reports system reviewed and no additional complaints, except as documented Neuro Denies abnormal gait, Denies dizziness, Denies syncope and Denies headache(s) Psych Reports no additional complaints Physical Exam Vital Signs: Last Vital Signs BP 104/74 10/21/24 15:42 BMI result Body Mass Index 25.0 Const General: cooperative, healthy appearing, comfortable and no acute distress Orientation/consciousness: patient oriented x3 HEENT Head: Yes normocephalic Ears: hearing grossly normal bilaterally General nose exam: Normal external nose present Eyes General: appearance normal, both eyes and all related structures Conjunctivae: conjunctivae normal Neck Neck: Yes full ROM and Yes no lymphadenopathy Resp Effort & Inspection: normal respiratory effort Auscultation: clear to auscultation bilaterally, no crackles, no rales, no rhonchi and no wheezes Cardio Rate: regular rate Rhythm: regular rhythm GI Other: bloating Palpation (GI): Soft to palpation, not firm, Tenderness to palpation present (GI), no guarding, not rigid, no masses and Rebound tenderness present Skin General skin exam: no rashes or lesions noted Neuro General: patient oriented x3 Gait exam (Neuro): Normal gait present Extrem General: Yes normal to inspection, Yes full ROM and No edema Psych Affect: normal affect Attitude: cooperative Insight: Good insight present (Psych) Judgement: Good judgement present (Psych) Assessment & Plan Assessment & Plan (1) Epigastric abdominal pain: Code(s): R10.13 - Epigastric pain Category: Medical Plan: The plan includes testing for H. pylori through a stool test and a stool culture to check for parasites, as these have not been previously explored. Simethicone is recommended for bloating, and sucralfate is prescribed to manage acid reflux symptoms. Dicyclomine is also prescribed for abdominal pain management, as it has provided relief in the past. Follow-up with a GI specialist is scheduled for November to further investigate the abdominal symptoms. Reviewed red flag symptoms and when to present for re-evaluation. She has not had any worsening of symptoms or change in symptoms recently and imaging is not warranted at this time. Plan This note was constructed using voice recognition software. While every effort has been made to ensure accuracy and pharmacy consultant, still areas may have been included sometimes these areas may affect the content or meeting of the given symptoms. Total time spent caring for the patient today was 20 minutes. This includes time spent before the visit reviewing the chart, time spent during the visit, and time spent after the visit and documentation. Patient was informed and verbally consented to the use of an ambient scribe for clinic note documentation during this visit. Orders: Orders H pylori Ag Stool Today R10.13 - Epigastric pain Ova and Parasite Today R10.13 - Epigastric pain Medications: New sucralfate 1 g PO QIDACHS 30 tabs 0RF simethicone (Gas Relief (simethicone)) 180 mg PO DAILY 30 caps 0RF dicyclomine 20 mg PO TID 30 tabs 0RF Coding Level of Care Code Est Pt Level 3 (02986) Diagnoses Epigastric abdominal pain R10.13
[2024-10-21 15:42] VITALS: BP 104/74; BMI 25.0
== END 2024-10-21 17:07 | disposition home or self-care (01) ==
LOC: HO.HMCH 15:37
PROVIDERS: PCP Internal Medicine
DX: R10.13 Epigastric pain (principal)

== ENCOUNTER 2024-11-11 07:58 | Outpatient (REF) | payer OTHER, SELFPAY ==
--- NOTE | ~2024-11-11 | FL_ITS ---
EXAMINATION: XR UPPER GI AIR CONTRAST SERIES. CLINICAL INFORMATION: Dysphagia. COMPARISON: None available. TECHNIQUE: Routine upper GI air contrast study was performed in upright and lying position. FINDINGS: Following oral administration of thick barium and effervescent granules there is normal propagation bolus from the oral cavity through the pharynx, esophagus into stomach without obstruction, narrowing or stricture. There intraluminal filling defect or extrinsic compression seen. On placing patient supine and prone lying the course, caliber and peristalsis of the stomach. There is mild increased gastric secretions. There is no mucosal gastric or dental erosions or ulcerations. No finding of a small diverticulum in the second segment of duodenum is noted. FLUOROSCOPY TIME: 2 minutes 1 second. DOSE AREA PRODUCT: 1665 uGy-m2 (microgray-meter squared) FL/FL upper GI w air IMPRESSION: Increased gastric secretions suggestive of hyper acidity. Small diverticulum second segment of duodenum. Electronically signed by: Austin Lora MD 11/11/2024 10:57 AM EDT
--- OUTSIDE RECORDS SUMMARY | 2024-11-11 08:02 | XMS_ITS | Clinical Summary ---
Author Organization [facility] Address [address] [place] [address] Phone Care Team Providers Care Bonding Machine Operator Name Role Phone Joan Molina Primary Care Provider Social History Tobacco Use Types Packs/Day Years [...] 107 04/04/2024 10:33 PM EST Temperature 34.6 C (94.2 F) 04/04/2024 10:33 PM EST Respiratory Rate - - Oxygen Saturation 98% [...] Panel) 03/09/2022 Colorectal Cancer Screening: Colonoscopy 03/09/2022 HIV Screening 03/09/2022 Social Influencers of Health Screening 03/09/2022 Pneumococcal Vaccine: 50+ Ye ars (1 of 1 - PCV) 2022 Zoster Vaccines (1 of 2) 2022 COVID-19 Vaccine (1 - 2023-2 5 season) 2023 Depression Screening 04/06/2024 Influenza Vaccine (#1) 2024 01/21/2020 Hepatitis C Screening Completed 07/04/2023 HIB [...] age to complete this topic Meningococcal B Vaccine Aged Out No l onger eligible based on patient's age to complete this topic RSV Immunization Patients Un dalton 20 months Aged Out No longer eligible b ased on patient's age to complete this topic Varicella Vaccines Aged Out No longer eligible based on patient's age to complete this topic Care Teams Bonding Machine Operator Relationship Specialty Start Date End Date Joan Molina [address] [place] [id number] PCP - General Internal Medicine 01/24/15
--- OUTSIDE RECORDS SUMMARY | 2024-11-11 08:02 | XMS_ITS | Clinical Summary ---
Author Organization [facility] Address [address] [place] [address] Care Team Providers Care Application Design Engineer Name Role Phone Unavailable Primary Care Provider [...]
== END 2024-11-11 07:59 | disposition home or self-care (01) ==
LOC: HO.XRAY 07:58
PROVIDERS: PCP Internal Medicine; Visit Provider Internal Medicine
DX: K21.9 Gastro-esophageal reflux disease without esophagitis (principal); R13.10 Dysphagia, unspecified
CPT/HCPCS: 74240; 74246

== ENCOUNTER → 2024-11-11 08:00 | Outpatient (BNV) | payer OTHER, SELFPAY | PROVIDERS: PCP Internal Medicine; Visit Provider Radiology Diagnostic Radiology | DX: R13.10 Dysphagia, unspecified (principal) | CPT/HCPCS: 74246 ==

== ENCOUNTER 2025-03-01 07:51 | Outpatient (AMB) | payer OTHER, SELFPAY ==
--- NOTE | 2025-03-01 07:57 | A.OFFVIS_ITS ---
Vital Signs 03/01/25 07:58 Height 5 ft 5 in Weight 150 lb BMI 25.0 BP 100/60 Blood Pressure Location Lt brachial Position Sitting Pulse 70 Intake Visit Reasons: Gerd, last seen 10/15/22 Intake Note: Patient complex for GERD/ last seen 10/15/22. Patient cc: abdominal pain with bloating, and acid reflux. Patient went to go to the ED due dark diarrhea, vomiting, fever and she have the ED visit information and she is really worry about the dx. Patient wanted to do an upper GI text. Choir Leader Required: No Accompanied by: Self / Same As Patient Allergies bupropion (From Wellbutrin) Adverse Reaction (Intermediate, Verified 10/21/24 15:47) Seizure paroxetine Adverse Reaction (Mild, Verified 10/21/24 15:47) Stomach Upset sertraline (Zoloft) Adverse Reaction (Mild, Verified 10/21/24 15:47) Stomach Upset Medication List - Last Reconciled 03/01/25 by Lamar Beltran CNP albuterol sulfate 90 mcg/actuation 2 puffs PO QID PRN ascorbic acid (vitamin C) 1 g PO DAILY buspirone 5 mg PO BID cholecalciferol (vitamin D3) 1,250 mcg PO QWEEK cyanocobalamin (vitamin B-12) 1,000 mcg PO DAILY dicyclomine 20 mg PO TID gabapentin 100 mg PO BEDTIME hydroxyzine HCl 25 mg PO BID PRN multivitamin 1 tab PO DAILY pantoprazole 40 mg PO DAILY zolpidem (Ambien) 5 mg PO BEDTIME PRN HPI HPI Gerd, last seen 10/15/22: Details: Patient is a 54-year-old female with PMH of anxiety, depression, insomnia, seizure disorder, asthma, GERD. Last visit with PENELOPE Boss 10/15/2022 for pre colonoscopy screening. Pt reports episodic severe abdominal pain, typically midline/epigastric in location but can become diffuse, ongoing since Feb 2024 with episodes every few months. During attacks, pain is severe, associated with vomiting and diarrhea. Most recently 02-26-2025 and summer 2024. States diarrhea included a small amount of blood but no hematemesis. Pain sometimes described as very bad, with episodes prompting ER visits. Low-grade fever (max temp 100?F) noted on most recent episode. Appetite fluctuates, decreases during episodes, otherwise variable. Pt experiences intermittent heartburn (~2x/week) and acid regurgitation, managed variably with OTC simethicone and PPI (pantoprazole 40 mg daily), though admits nonadherence on asymptomatic days. Outside of acute episodes, baseline bowel habits ~qod, helped by daily fiber (Metamucil) and magnesium, with no straining or hemorrhoids. Drinking/food triggers not clearly identified. Pt denies dysphagia or hematemesis. Upper GI series (11/2024) showed hyperacidity and small bowel diverticula; colonoscopy (04/2023) revealed 1 pre-cancerous colonic polyp. Non-GI relevant data: Asthma (uses inhaler PRN), anxiety (buspirone daily), stable weight, no hx of malignancy. Extensive recent workup (labs wnl 03/2024, a bdo US 04/2024?showed 2 mm GB polyp, otherwise nl organs), recent CT abd/pelvis (02/2025, ER) showing benign mesenteric inflammation, no documented obstruction/ischemia. Patient denies:dysphasia, unintentional wt loss or Social hx: -ETOH use 2x/month (2 margaritas/outing) -denies recreational drug use -former smoker, cessation 2 years ago - family hx as below -denies personal hx of CA -denies significant cardiopulmonary history -tolerated anesthesia in the past without difficulty. [facility] Medical History (Updated 03/01/25 @ 09:25 by Lamar Beltran CNP) Sessile serrated polyp of colon Diarrhea GERD (gastroesophageal reflux disease) Colon cancer screening Leukopenia Lower back pain Tobacco abuse Seizure disorder Migraine Anxiety and depression Asthma Insomnia Surgical History Hx of breast augmentation History of abdominoplasty Family History (Updated 03/01/25 @ 08:38 by Lamar Beltran CNP) Father Mouth cancer Mother No problems noted. Sister Seizure Bipolar disorder Maternal Grandmother Leukemia Breast cancer Paternal Grandmother Leukemia Cancer Maternal Uncle Liver cancer Heart attack Stomach cancer Other Mental health problem Social History Household Members Other:: - 2 children Housing: House Alcohol intake: current Alcohol intake frequency: holidays/special occasions only Comment: 1-2 x a month 2 drinks Patient Tobacco Use Status: Former Tobacco user Tobacco use type: Cigarette Years Smoked: quit 2020 e-Cigarette/Vaping Use: Never Used Second Hand Smoke Exposure: No service: No Current occupational status: employed Cognitive needs: No Hearing needs: No Vision needs: No Review of Systems Const Reports as per HPI ENT Reports as per HPI Card Reports as per HPI Resp Reports as per HPI GI Reports as per HPI Reports as per HPI Physical Exam Vital Signs: Last Vital Signs Pulse 70 03/01/25 07:58 BP 100/60 03/01/25 07:58 BMI result Body Mass Index 25.0 Const General: healthy appearing, no acute distress and well developed Nutritional Appearance: average body habitus Orientation/consciousness: patient oriented x3 HEENT Head: Yes normal to inspection, Yes normocephalic and Yes atraumatic Face and sinus: Yes normal facial exam Eyes General: appearance normal, both eyes and all related structures Neck Neck: Yes normal visual inspection Resp Effort & Inspection: normal respiratory effort, able to speak in complete sentences, no tracheal deviation and symmetric chest movement Cardio Jugular venous distension: no JVD GI Inspection: Yes normal to inspection, No distended and Yes other (mild ab blo ating) Palpation (GI): Soft to palpation, not firm, nontender and No hepatosplenomegaly present Auscultation: normal bowel sounds Neuro General: patient oriented x3 Gait exam (Neuro): Normal gait present Psych Appearance: grossly normal Mental Status: mental status grossly normal Speech and movement: Normal speech and movement present Affect: normal affect Attitude: cooperative Thought process: Normal thought process present Thought content: Normal thought content present Insight: Good insight present (Psych) Judgement: Good judgement present (Psych) Results Reviewed Results Reviewed: 04/16/23 colonoscopy complete with adequate prep -10 mm Sessile serrated lesion/polyp without dysplasia (Descending) , mild diverticulosis ( Sigmoid) , small internal hemorrhoids, grade I. Per guidelines repeat 3 years ( 2026). Operative Note Date of Service: 04/16/23 Narrative: Operative Information Procedure Description: Colonoscopy Indication: screening Anesthesia: MAC COLONOSCOPY Instrument: Olympus variable stiffness pediatric scope 190L Colonoscopy Monitoring: Vital signs and clinical assessment, continuous EKG monitoring, Pulse oximetry, Carbon Dioxide monitoring and blood pressure monitoring were done throughout the procedure. Colon withdrawal time was 12 minutes. Procedure: The patient was placed in the left lateral decubitis position and pre-procedure medications were administered. After a digital rectal examination of the ano-rectum, the video colonoscope was inserted into the rectum and advanced through the colon to the cecum/TI. The colonoscope was slowly withdrawn in a retrograde panoramic fashion and the colon mucosa was carefully examined including a retroflexed view of the rectum. Findings and interventions are described below. Procedure Difficulty: easy Findings: Terminal Ileum-normal Cecum:normal Ascending Colon: normal Transverse Colon -normal Descending Colon: 10 mm sessile polyp removed with cold snare Sigmoid Colon: mild diverticulosis Rectum: Retroflexion with small internal hemorrhoids, grade I Anorectum - normal Colon preparation: Lyle Bowel Preparation Scale Right colon; 2 Transverse colon: 2 Left colon; 3 (0 = Unprepared colon segment with mucosa not seen due to solid stool that cannot be cleared. 1 = Portion of mucosa of the colon segment seen, but other areas of the colon segment not well seen due to staining, residual stool and/or opaque liquid. 2 = Minor amount of residual staining, small fragments of stool and/or opaque liquid, but mucosa of colon segment seen well. 3 = Entire mucosa of colon segment seen well with no residual staining, small fragments of stool or opaque liquid) Impression and Post Procedure Diagnosis: polyp internal hemorrhoids diverticular disease Plan: High fiber diet leaflet Avoid straining at stool, epsom salts and sitz bath, anusol supps or cream Repeat Colonoscopy in 5-6 years due to poylp removed today or earlier if clinica lly indicated PATHOLOGY: Collected: 04/16/23 Location: [facility] Received: 04/16/23 Diagnosis Colon, descending, polyp: Sessile serrated lesion/polyp without dysplasia. Clinical History Pre-Op Dx: Encounter for screening for malignant neoplasm of colon Post-Op Dx: Hemorrhoids, diverticulosis, polyp Assessment & Plan Assessment & Plan (1) Epigastric abdominal pain: Code(s): R10.13 - Epigastric pain Category: Medical Plan: Chronicity >1 yr, recurrent ER visits, imaging w/ episodic benign-appearing mesenteric inflammation seen, normal labs and bowel imaging, no clear chronic disease identified. Additional Testing: - Repeat labs: CBC, CMP, LFTs, inflammatory markers, celiac panel, autoimmune markers - Stool studies: Inflammation markers, culture, calprotectin - Repeat CT abd/pelvis w/ oral contrast (pending interval per senior provider input) Medication Management: - Consider dicyclomine for symptomatic spasms if helpful in past - No current steroid therapy; pred taper discussed, plan deferred pending further review Lifestyle Recommendations: - Continue high fiber for bowel regularity - Maintain hydration - Monitor and document triggers as able Follow-Up: - F/u after repeat labs and imaging completed, will coordinate once studies scheduled/completed - Sooner if new/worsening sx, hematemesis, persistent rectal bleeding, or inability to tolerate PO (2) GERD (gastroesophageal reflux disease): Code(s): K21.9 - Gastro-esophageal reflux disease without esophagitis Category: Medical Qualifiers: Esophagitis presence: without esophagitis Qualified Code(s): K21.9 - Gastro-esophageal reflux disease without esophagitis Plan: Persistent symptoms, documented hyperacidity (upper GI series), partial response to PPI, poor adherence Additional Testing: - Schedule upper endoscopy (EGD) for mucosal assessment and to rule out ulceration, Juarez's or malignancy Medication Management: - Initiate/continue pantoprazole 40 mg qam on empty stomach, daily (reinforced education for adherence) - Add famotidine 40 mg qhs (until EGD) - Continue simethicone prn if perceived to help - Continue to avoid non-responsive supplements prn Lifestyle Recommendations: - Avoid triggers: EtOH, spicy/fried/fatty foods, eating late or lying down postprandially, overeating - Encourage small frequent meals, maintain hydration Follow-Up: - Until EGD completed; adjust regimen according to findings/outcomes (3) Gallbladder polyp: Comment: 04/2024 2 mm polyp Code(s): K82.4 - Cholesterolosis of gallbladder Category: Medical Plan: Incidental finding, asymptomatic, but due for surveillance per protocol Additional Testing: - Repeat RUQ US to reassess polyp size/character, r/o interval growth Medication Management: None indicated Lifestyle Recommendations: - Continue usual diet, avoid rapid weight loss Follow-Up: - If polyp has grown, consider surgical consult - If stable, interval imaging as per guidelines (4) Sessile serrated polyp of colon: Code(s): D12.6 - Benign neoplasm of colon, unspecified Category: Medical Plan: Surveillance indicated due to polyp size/type Additional Testing: None at this time, next colonoscopy due 2026 Medication Management: N/A Lifestyle Recommendations: Maintain high fiber diet, routine CRC risk reduction Follow-Up: Routine surveillance Plan Follow-up after US or sooner as needed Time: I spent a total of 45 minutes on the date of encounter which includes: Preparing to see the patient (reviewed previous documentation, test results and medical history) Performing a medically appropriate exam and/or evaluation Ordering medications, tests, and procedures Documenting clinical information in the health record Orders: Orders Complete Blood Count Auto Diff Today R10.13 - Epigastric pain C Reactive Protein Today R10.13 - Epigastric pain Calprotectin, Fecal Today R19.7 - Diarrhea, unspecified US abdomen complete Today K82.4 - Cholesterolosis of gallbladder, R10.13 - Epigastric pain Ova and Parasite Today R19.7 - Diarrhea, unspecified Leukocytes Stool Qualitative Today R19.7 - Diarrhea, unspecified Immunoglobulin E Today R10.13 - Epigastric pain SEVEN Reflex Titer and Pattern Today R10.13 - Epigastric pain Comprehensive [place]. Panel Fast Today R10.13 - Epigastric pain Transglutaminase IgA Today R10.13 - Epigastric pain, R11.2 - Nausea with vomiting, unspecified GI Panel Today R19.7 - Diarrhea, unspecified Fecal Fat Qualitative Today R19.7 - Diarrhea, unspecified Immunoglobulins,IgG IgA IgM Today R10.13 - Epigastric pain Referrals GI Procedure Notification K21.9 - Gastro-esophageal reflux disease without esophagitis, R10.13 - Epigastric pain Medications: New famotidine Take one tablet at bedtime. 40 mg PO BEDTIME 180 tabs 0RF Coding Level of Care Code Established Pt Est Pt Level 5 (22724) Patient Type Established Diagnoses Epigastric abdominal pain R10.13 Gastroesophageal reflux disease without esophagitis K21.9 Esophagitis presence: without esophagitis Gallbladder polyp K82.4 Sessile serrated polyp of colon D12.6
--- OUTSIDE RECORDS SUMMARY | 2025-03-01 07:57 | XMS_ITS | Clinical Summary ---
Author Organization [facility] Address [address] [place] [address] Phone Care Team Providers Care Ehs Engineer Name Role Phone Joan Molina Primary Care Provider [phone] Social History Tobacco Use Types Packs/Day Years [...] Last Done Comments Breast Cancer Screening 1972 Colorectal Cancer Screening: Colonoscopy 1972 DTaP,Tdap,and Td Vaccines (1 - Tdap) 1991 Hepatitis B Vaccines (1 of 3 - 19+ 3-dose series) 1991 Cervical Cancer Screening: P ap Smear 1993 Cholesterol Screening (Lipid Panel) 03/09/2022 HIV Screening 03/09/2022 Social Influencers of Health Screening 03/09/2022 Pneumococcal Vaccine: 50+ Ye ars (1 of 1 - PCV) 2022 Zoster Vaccines (1 of 2) 2022 Depression Screening 04/06/2024 COVID-19 Vaccine (1 - 2024-2 6 season) 2024 Influenza Vaccine (#1) 2024 01/21/2020 RSV Immunization Adult Patie nts (1 - 1-dose 75+ series) 2047 Hepatitis C Screening Completed 07/04/2023 HIB Vaccines [...] age to complete this topic Care Teams Ehs Engineer Relationship Specialty Start Date End Date Joan Molina [address] [place] [phone] PCP - General Internal Medicine 01/24/15
--- OUTSIDE RECORDS SUMMARY | 2025-03-01 07:57 | XMS_ITS | Clinical Summary ---
Author Organization [facility] Address [address] [place] [address] Care Team Providers Care Compounder Flavorings Name Role Phone Unavailable Primary Care Provider [...]
[2025-03-01 07:58] VITALS: BP 100/60; PULSE 70; BMI 25.0
== END 2025-03-01 09:04 | disposition home or self-care (01) ==
LOC: HO.HGI 07:52
PROVIDERS: PCP Internal Medicine; Visit Provider Nurse Practitioner Family
DX: R10.13 Epigastric pain (principal); K21.9 Gastro-esophageal reflux disease without esophagitis; K82.4 Cholesterolosis of gallbladder; D12.6 Benign neoplasm of colon, unspecified
CPT/HCPCS: 99215

== ENCOUNTER 2025-03-27 07:58 | Outpatient (REF) | payer OTHER, SELFPAY ==
--- OUTSIDE RECORDS SUMMARY | 2024-04-04 03:20 | XMS_ITS ---
Author Organization [facility] Address [address] [place] [address] Care Team Providers Care Cardiac Technician Name Role Phone HARDEEP BAILEY M.D. 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 :1970 A ge:53 Y S ex:Female Date:04/04/2024 Address:[address] [place], [place] [id number] Pcp:HARDEEP BAILEY M.D. Subjective: * Chief Complaints: * 1 . 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 * Medical History: O ther asthma, Other specified abnormal uterine and vaginal bleeding, Epilepsy, unspecified, intractable, without status epilepticus, Unspecified menopausal and perimenopausal disorder. 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 S exual activity c urrently sexually active. L ast Pap Smear: 1 05/13/20 NIL, NEG HPV, 07/17/2015 , neg, NEG HRHPV. M [place]: [place]. L MP and menses S ept 2022, about 2-3 a year. B irth Control: n one. C olonoscopy S cheduled Apr 2023. * OB History: T otal pregnancies 4 . T otal living children 2 . N VD 2 . M iscarriage(s) 2 . Objective: * Vitals: Assessment: Plan: * Treatment: * Images: Billing Information: * Visit Code: * Procedure Codes: * Electronic signature of Ezra Osei MD on 03/27/2025 at 08:01 AM EST Sign off status: Pending * Appointment Provider: Juan Osei M.D. Date: Generated for Dmitry armenta/Jamil/Rupertosmitting on: 05/28/2024 08:01 AM EST
--- OUTSIDE RECORDS SUMMARY | 2024-04-07 08:50 | XMS_ITS ---
Author Organization [facility] Address [address] [place] [address] Care Team Providers Care Document Review Specialist Name Role Phone HARDEEP BAILEY M.D. Primary Care Provider Billie Chua Unavailable [phone] REASON FOR VISIT MENOPAUSAL SYMPTOMS Encounters Encounter Location Date Provider Diagnosis [facility] [employer] [facility] [address] 04/07/2024 Billie Osei Plan Of Treatment Next Appt Details Provider Name:Billie esquivel, 02/21/2026 08:00:00 AM, [address] [place] [address], [place], [address], Progress Notes * JACKLYN CUEVADOB:1970 (54 yo F)Acc No.[id number]:04/07/2024 PROGRESS NOTES Patient: Dorene CITLALY JACKLYN Appointment Provider: Juan Osei M.D. :1970 A ge:53 Y S ex:Female Date:04/07/2024 Address:[address] [place], [place] [id number] Pcp:HARDEEP BAILEY M.D. Subjective: * Chief Complaints: * 1 . MENOPAUSAL SYMPTOMS. * Medical History: O ther asthma, Other specified abnormal uterine and vaginal bleeding, Epilepsy, unspecified, intractable, without status epilepticus, Unspecified menopausal and perimenopausal disorder. 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 S exual activity c urrently sexually active. L ast Pap Smear: 1 05/13/20 NIL, NEG HPV, 07/17/2015 , neg, NEG HRHPV. M ammogram: [place], [place]. L MP and menses [...] * Appointment Provider: Juan Osei M.D. Date: 0 04/07/2024 Generated for Dmitry armenta/Jamil/Evangelinaitting on: 05/28/2024 08:01 AM EST
--- NOTE | ~2025-03-27 | US_ITS ---
CLINICAL HISTORY: K82.4 - Cholesterolosis of gallbladder --- Additional Notes or Special Instructions: surveillance for polyp Ultrasound of the abdomen Comparison: 04/29/24 Findings: The liver is the upper limit of normal size, measuring 17.0cm. Normal echogenicity without focal lesions. Normal flow is visualized within the portal vein. No intrahepatic biliary ductal dilatation. No cholelithiasis. Gallbladder polyps measuring up to 2 mm, unchanged. No gallbladder wall thickening or pericholecystic fluid. Negative Hu's sign. The common bile duct is normal, measuring 0.5cm. Unremarkable limited evaluation of the pancreas. The right kidney is normal in echogenicity and size, measuring 11.0cm. No nephrolithiasis or hydronephrosis. 8 x 5 x 6 mm cyst with associated calcification, previously measuring 7 x 6 x 6 mm. The left kidney is normal echogenicity and size, measuring 11.3cm. No nephrolithiasis or hydronephrosis. The spleen is without focal lesions and normal in size, measuring 8.6cm. The aorta and IVC are unremarkable. No ascites. Images were obtained of the periumbilical area which is documented as the area of concern. There is no identified hernia, cystic or solid lesion. Impression: No acute findings. Gallbladder polyps measure up to 2 mm. Subcentimeter right renal cyst with associated calcification. This document has been electronically signed by: Arcelia Shetty MD on 03/28/2025 14:00:30
--- OUTSIDE RECORDS SUMMARY | 2025-03-27 08:01 | XMS_ITS | Clinical Summary ---
Author Organization [facility] Address [address] [place] [address] Phone Care Team Providers Care Classics Professor Name Role Phone Joan Molina Primary Care Provider [phone] Social History Tobacco Use Types Packs/Day Years Used Date Smoking Tobacco: Never Smokeless Tobacco: Never Comments Unknown Sex and Gender Information Value Date Recorded Sex Assigned at Not on file Legal Sex Female 2:16 AM EST Gender Identity Not on file Sexual Orientation Not on file Last Filed Vital Signs [...] Tdap) 1991 Hepatitis B Vaccines (1 of - + 3-dose series) 1991 Cervical Cancer Screening: P [...] age to complete this topic Care Teams Classics Professor Relationship Specialty Start Date End Date Joan Molina [address] [place] [phone] PCP - General Internal Medicine 01/24/15
--- OUTSIDE RECORDS SUMMARY | 2025-03-27 08:01 | XMS_ITS | Clinical Summary ---
Author Organization [facility] Prior to 09/03/[address] [place] [id number] Care Team Providers Care Primary Health Organisation Manager Name Role Phone Unavailable Primary Care Provider [...]
--- OUTSIDE RECORDS SUMMARY | 2025-03-27 08:01 | XMS_ITS | Patient Health Record ---
Author Organization [facility] Address [address] [facility] [address] [place] [address] Care Team Providers Care Chief [facility] Name Role Phone HARDEEP BAILEY M.D. Primary Care Provider Alfie lemons Pamela Oseili Unavailable [phone] Allergies No Known Allergies Results Component Value Reference Range Notes [id number] IGP No Culture 30 Plus Reviewed date:02/08/2025 01:07:38 PM Interpretation: Performing Lab:[facility], [address], [address], [place], Phone - [phone], Director - [facility] Notes/Report: Clinical Information:cerv/vag [id number] Dates / Results....03/22/2021 nil neg hpv Other..............Post Menopausal No. of containers..01 ThinPrep Vial DIAGNOSIS: NEGATIVE FOR INTRAEPITHELIAL LESION OR MALIGNANCY. THIS SPECIMEN WAS RESCREENED PART OF OUR ART CONSULTANT PROGRAM. Specimen adequacy: Satisfactory for evaluation. Endocervical and/or squamous metaplastic cells (endocervical component) are present. Clinician provided ICD10: Z01.419 Z11.51 Performed by: Jarvis anglin, Banquet Line Cook (ASC) QC reviewed by: Thai ferreira, Banquet Line Cook (ASCP) . . Note: The Pap smear is a screening test designed to aid in the detection of premalignant and malignant conditions of the uterine cervix. It is not a diagnostic procedure and should not be used as the sole means of detecting cervical cancer. Both false-positive and false-negative reports do occur. . Test Methodology: This liquid based ThinPrep(R) pap test was screened with the use of an image guided system. HPV Aptima Negative Negative This nucleic acid amplification test detects fourteen high-risk HPV types (16,18,31,33,35,39,45,51,52,5 6,58,59,66,68) without differentiation. HPV Genotype Reflex Criteria not met, HPV Genotype not performed. PDF Report Reviewed date:10/29/2024 05:36:37 PM Interpretation: Performing Lab:[facility], [address] [place] [address], Phone - [phone], Director - [place] Notes/Report: Clinical Information:SRC: URINE Urinalysis Reviewed date:02/02/2025 03:31:45 PM Interpretation: Performing Lab: Notes/Report: PH 5.0 PROTEIN NEG GLUCOSE NEG BLOOD NEG Urinalysis Reviewed date:10/27/2024 04:33:34 PM Interpretation: Performing Lab: Notes/Report: NITRITE Neg PH 6.0 PROTEIN Slight Trace S.G 1.015 WBC Trace GLUCOSE Neg KETONES Neg UROBILINOGEN Neg BILIRUBIN Neg BLOOD Neg Urinalysis, Complete-[id number] Reviewed date:10/29/2024 05:37:32 PM Interpretation: Performing Lab:[facility], [address] [place] [address], Phone - [phone], Director - [place] Notes/Report: Clinical Information:SRC: URINE Clinical Information:SRC: URINE Specific Kell 1.017 1.005-1.030 pH 6.0 5.0-7.5 Urine-Color Yellow Yellow Appearance Clear Clear WBC Esterase Negative Negative Protein Negative Negative/Trace Glucose Negative Negative Ketones Negative Negative Occult Blood Negative Negative Bilirubin Negative Negative Urobilinogen,Semi-Qn 0.2 0.2-1.0 mg/dL Nitrite, Urine Negative Negative Microscopic Examination Micr oscopic follows if indicated. Microscopic Examination See below: Micr oscopic was indicated and was performed. WBC None seen 0 - 5 /hpf RBC 0-2 0 - 2 /hpf Epithelial Cells (non renal) 0-10 0 - 10 /hpf Casts None seen None seen /lpf Bacteria None seen None seen/Few Urine Culture, Routine-[id number] Reviewed date:10/29/2024 05:37:21 PM Interpretation: Performing Lab:[facility], [address] [place] [address], Phone - [phone], Director - [place] Notes/Report: Clinical Information:SRC: URINE Clinical Information:SRC: URINE Urine Culture, Routine Final report Result 1 Mixed urogenital yonas 10,000-25,000 colony forming units per mL PDF Report Reviewed date:02/08/2025 01:07:07 PM Interpretation: Performing Lab:[facility], [address], [address], [place], Phone - [phone], Director - Scooter Notes/Report: Clinical Information:cerv/vag [id number] Dates / Results....03/22/2021 nil neg hpv Other..............Post Menopausal No. of containers..01 ThinPrep Vial Reason For Referral No Information Medications Medication SIG (Take, Route, Frequency, Duration) Notes Start Date End Date Status hydrOXYzine HCl 25 MG TAKE ONE TABLET BY MOUTH 2 TIMES A DAY NEEDED FOR ANXIETY ALLERGIES Oral; Duration: 90 Days Active busPIRone HCl 15 MG 1 tablet Orally Daily Active Vitamin D3 25 MCG (1000 UT) 1 capsule Orally Once a day; Duration: 30 day(s) Active Prometrium 200 MG 1 capsule at bedtime Orally Once a day; Duration: 90 days 10/27/2024 Active Estradiol 0.05 MG/24HR 1 patch to skin Transdermal Two times a Week; Duration: 90 days 10/27/2024 Active Vitamin C Active Gabapentin 100 MG 100 MG ORALLY BEDTIM E Oral; Duration: 90 Days Active Omeprazole 20 MG 20 MG ORALLY DAILY O ral; Duration: 90 Days Active Zolpidem Tartrate 5 MG TAKE 1 TABLET BY MOUTH EVERY DAY AT BEDTIME NEEDED FOR SLEEP Oral; Duration: 90 Days Active Albuterol Sulfate HFA 108 (90 Base) MCG/ACT 2 PUFF ORALLY 4 TIMES A DAY NEEDED FOR SHORTNESS OF BREATH OR WHEEZING Inhalation; Duration: 20 Days Active Social History Tobacco Use: Social History Observation Description Date Details (start date - stop date) Former Smoker NA - NA AUDIT-C (Standard) Question Answer Notes Did you have a drink contain ing alcohol in the past year? Yes How often did you have a dri nk containing alcohol in the past year? 2 to 3 times a week (3 points) How many drinks did you have on a typical day when you were drinking in the past year? 1 or 2 drinks (0 point) How often did you have six o r more drinks on one occasion in the past year? Never (0 point) Points 3 Interpretation Positive Tobacco Control (Standard) Question Answer Notes Tobacco use: Former smoker How long has it been since you last smoked? 5-10 years Problems Problem Type SNOMED Code ICD Code Onset Dates Problem Status W/U Status Risk Notes Problem Menopause (220247055) Menopausal and female climacteric states (N95.1) Active confirmed Problem Postmenopausal atrophic vaginitis (43326276) Postmenopausal atrophic vaginitis (N95.2) Active confirmed Problem Epilepsy, unspecified, intractable, without status epilepticus (G40.919) Active confirmed Problem Unspecified menopausal and perimenopausal disorder (N95.9) Active confirmed Vital Signs Temperature 97.3 degrees Fahrenheit 02/02/2025 Blood pressure diastolic 70 mm Hg 02/02/2025 Height 65 in 02/02/2025 Blood pressure systolic 104 mm Hg 02/02/2025 Weight 147 lbs 02/02/2025 BMI 24.46 kg/m2 02/02/2025 Encounters Encounter Location Date Provider Diagnosis [address] [address] 04/04/2024 Billie Osei [address] [address] 10/27/2024 Billie Osei Menopausal and femal e climacteric states N95.1 ; Abdominal distension (gaseous) R14.0 ; Pelvic Pain R10.2 and Urgency of urination R39.[address] [address] 02/02/2025 Billie Osei Encounter for gynecological examination (general) (routine) without abnormal findings Z01.419 ; Encounter for screening for human papillomavirus (HPV) Z11.51 ; Encounter for screening mammogram for malignant neoplasm of breast Z12.31 ; Hormone replacement therapy Z79.890 ; Postmenopausal atrophic vaginitis N95.2 ; Decreased libido R68.82 and Dense breasts, unspecified R92.[address] [address] 10/27/2024 Billie Sea [address] [place] [address] 10/28/2024 Billie Sea Assessments Encounter Date Diagnosis (ICD Code) Assessment Notes Treatment Notes Treatment Clinical Notes Section Notes 10/27/2024 Menopausal and female climacteric states (ICD-10 - N95.1) DISCUSSED MENOPAUSE AND SYMPTOMS ASSOCIATED WITH IT. DISCUSSED HRT, ITS BENEFITS AND RISKS. PAT HAS NO CONTRAINDICATIONS AND ACCEPTS RISKS. RX AND DETAILED INSTRUCTIONS WERE GIVEN. RTO IN 3 MONTHS FOR A FOLLOW UP VISIT. 02/02/2025 Encounter for screening for human papillomavirus (HPV) (ICD-10 - Z11.51) HPV TYPING WAS ORDERED WITH PAP TEST. 02/02/2025 Encounter for gynecological examination (general) (routine) without abnormal findings (ICD-10 - Z01.419) PAP TEST WAS OBTAINED. 02/02/2025 Encounter for screening mammogram for malignant neoplasm of breast (ICD-10 - Z12.31) REGULAR MAMMOGRAMS AND SBE'S WERE RECOMMENDED. 10/27/2024 Abdominal distension (gaseous) (ICD-10 - R14.0) KEEP HER GI APPT. 10/27/2024 Pelvic Pain (ICD-10 - R10.2) OBTAIN PELVIC ULTRASOUND RESULTS DONE A FEW WEEKS AGO. 02/02/2025 Hormone replacement therapy (ICD-10 - Z79.890) DISCUSSED BENEFITS AND RISKS OF HRT AGAIN. PAT WANTS TO CONTINUE. SHE FEELS SO MUCH BETTER. SHE UNDERSTANDS AND ACCEPTS RISKS AND HAS NO CONTRAINDICATIONS. 02/02/2025 Postmenopausal atrophic vaginitis (ICD-10 - N95.2) DISCUSSED FINDINGS, DX AND TX OPTIONS. RECOMMENDED INTRAVAGINAL ESTROGEN, ITS BENEFITS AND RISKS AND SHE AGREED. 10/27/2024 Urgency of urination (ICD-10 - R39.15) OFFICIAL UA AND URINE C/S. 02/02/2025 Decreased libido (ICD-10 - R68.82) DISCUSSED DECREASED LIBIDO AND MENOPAUSE. RECOMMENDED ADDING TESTOSTERONE TO INTRAVAGINAL ESTROGEN PREPARATION. SHE HAS NO CONTRAINDICATIONS AND UNDERSTANDS RISKS OF ADDING TESTOSTERONE TO HER REGIMEN. COMPOUNDED CREAM WITH ESTRIOL AND TESTOSTERONE WAS CALLED INTO [facility]. DETAILED INSTRUCTIONS AND RX WERE GIVEN. RTO IN 3 MONTHS FOR HORMONE CHECK AND FOLLOW UP. 02/02/2025 Dense breasts, unspecified (ICD-10 - R92.30) DISCUSSED DENSE BREASTS ON MAMMOGRAM AND ITS IMPLICATIONS. 3D MAMMOGRAMS WERE RECOMMENDED. QUESTIONNAIRE TO ASSESS BREAST CA RISK WAS GIVEN. IF RISK IS 20% OR MORE, WILL NEED SCREENING BREAST US OR MRI. Plan Of Treatment Pending Test Test Name Order Date Urinalysis 04/01/2023 MM Digital Mammo Screening 02/02/2025 MM Digital Mammo Screening 07/17/2015 MM Digital Mammo Screening 03/12/2021 MM Digital Mammo Screening 03/25/2022 MM Digital Mammo Screening 04/01/2023 Next Appt Details Provider Name:Billie Vega lynjad, 02/21/2026 08:00:00 AM, [address] [facility], [address], [place], [address], Insurance Providers Payer Name Payer Address Payer Phone Subscriber Number Group Number Insured Name Patient Relationship to Insured Coverage Start Date Coverage End Date [employer] [address] [place] [address] [id number] ELIZABETH CUEVA Spouse - patient is the spouse of the insured Medical (General) History Medical History History ICD Code Other asthma J45.998 Other specified abnormal uterine and vag inal bleeding N93.8 Epilepsy, unspecified, intractable, with out status epilepticus G40.919 Unspecified menopausal and perimenopausa l disorder N95.9 Menopausal and female climacteric states N95.1 Abdominal distension (gaseous) R14.0 Dense breasts, unspecified R92.30 Mammographic heterogeneous density, bila teral breasts R92.333 Surgical History Surgery Date(Month/Year) Breast Augmentation 08/2013 Abdominoplasty 09/2006 HSONO/EMB 2016 Colonoscopy Hospitalization History Reason Date(Month/Year) See Surgical Hx 2 Vaginal Deliveries
== END 2025-03-27 07:59 | disposition home or self-care (01) ==
LOC: HO.US 07:58
PROVIDERS: Visit Provider Nurse Practitioner Family
DX: K82.4 Cholesterolosis of gallbladder (principal); R10.13 Epigastric pain
CPT/HCPCS: 76700

== ENCOUNTER → 2025-03-27 08:01 | Outpatient (BNV) | payer OTHER, SELFPAY | PROVIDERS: Visit Provider Radiology Diagnostic Radiology | DX: K82.4 Cholesterolosis of gallbladder (principal); N28.1 Cyst of kidney, acquired; N20.0 Calculus of kidney | CPT/HCPCS: 76700 ==